=== PATIENT | female | born 1970 | race Two or more races ===

== ENCOUNTER 2018-01-08 17:58 | Emergency (ER) | payer OTHER ==
[~2018-01-08] VITALS: Ht 162.6 cm; Wt 95.3 kg
[~2018-01-08 17:58] MED LIST: BACTRIM DS TAB1 EAC1 ORAL; CIPRO500 MG/51 PO; DOCUSATE SODIU100 MG ORAL; NORCO 10/3251 EA ORAL
[2018-01-08] MEDS ORDERED: Morphine Sulfate 4mg/ml Inj IVP ONE (18:45)
--- NOTE | 2018-01-08 18:52 | Emergency Room Report ---
History of Present Illness General Chief Complaint: Abdominal Pain Source: Patient Present Illness HPI Patient is a 47 -year-old female presents today with complaints of left lower quadrant abdominal pain that began 2 days ago. She has a history of ovarian cancer and is status post hysterectomy and salpingoophorectomy. She states pain is currently not in severity and she is taking omeprazole with relief. She has associated nausea and vomiting, last episode was yesterday. Allergies: Coded Allergies: No Known Allergies (Unverified , 06/29/16) Patient History Last Menstrual Period: 06/20/16 Now: No Reviewed Nursing Documentation: PMH: Agreed; PSxH: Agreed Nursing Documentation-PMH Hx Cardiac Problems: No Hx Cancer: Yes - Ovary cancer Hx Gastrointestinal Problems: No Hx Neurological Problems: No Review of Systems Gastrointestinal: Reports: abdominal pain All Other Systems: negative except mentioned in HPI Physical Exam Vital Signs Date Time Temp Pulse Resp B/P (MAP) Pulse Ox O2 Delivery O2 Flow Rate FiO2 01/08/18 18:09 98.3 72 22 151/86 96 Room Air 98.2 Sp02 EP Interpretation: reviewed, normal General Appearance: no apparent distress, alert, GCS 15, non-toxic Head: normocephalic, atraumatic Eyes: bilateral eye normal inspection, bilateral eye PERRL ENT: hearing grossly normal, normal pharynx, no angioedema, normal voice Neck: full range of motion, supple/symm/no masses Respiratory: chest non-tender, lungs clear, normal breath sounds, speaking full sentences Cardiovascular #1: regular rate, rhythm, no edema Cardiovascular #2: 2+ carotid (R), 2+ carotid (L), 2+ radial (R), 2+ radial (L) , 2+ dorsalis pedis (R), 2+ dorsalis pedis (L) Gastrointestinal: normal bowel sounds, soft, non-distended, no guarding, no rebound, other - LLQ abdominal pain Rectal: deferred Genitourinary: normal inspection, no CVA tenderness Musculoskeletal: back normal, gait/station normal, normal range of motion, non- tender, calf tenderness Neurologic: alert, oriented x3, responsive, motor strength/tone normal, sensory intact, speech normal Psychiatric: judgement/insight normal, memory normal, mood/affect normal, no suicidal/homicidal ideation Reflexes: 3+ bicep (R), 3+ bicep (L), 3+ tricep (R), 3+ tricep (L), 3+ knee (R) , 3+ knee (L) Skin: normal color, no rash, warm/dry, well hydrated Lymphatic: no adenopathy Medical Decision Making PA Attestation Supervising physician is Dr. Null Diagnostic Impression: Primary Impression: Acute cystitis Additional Impression: LLQ abdominal pain ER Course Findings consistent with acute cystitis. No evidence of pyelonephritis. Patient has no leukocytosis and labs are within normal limits. CT is negative for intra-abdominal pathology. multiple re-evaluations made, patient states she is feeling much better. Abdomen is soft and nontender on reevaluation. Patient is discharged home with Keflex and instructed to follow-up with his further evaluation and management. Patient understands and is agreeable with plan. Last Vital Signs Date Time Temp Pulse Resp B/P (MAP) Pulse Ox O2 Delivery O2 Flow Rate FiO2 01/08/18 20:30 97.9 64 14 114/76 96 Room Air 97.9 Last Vital Signs Date Time Temp Pulse Resp B/P (MAP) Pulse Ox O2 Delivery O2 Flow Rate FiO2 01/08/18 18:09 98.3 72 22 151/86 96 Room Air 98.2 Status: improved Disposition: HOME, SELF-CARE Condition: Stable Scripts Cephalexin* (KEFLEX*) 500 Mg Capsule 500 MG ORAL EVERY 6 HOURS for 10 Days, #40 CAP Prov: Pamela Rincon P.A. 01/08/18 Cephalexin* (KEFLEX*) 500 Mg Capsule 500 MG ORAL EVERY 12 HOURS for 10 Days, #20 CAP 0 Refills Prov: Pamela Rincon P.A. 01/08/18 Patient Instructions: Abdominal Pain, Adult Pamela Rincon P.A. Jan 08, 2018 18:52
[2018-01-08 20:17] LABS: ANION GAP 8 mmol/L (5-15); BLOOD UREA NITROGEN 21 mg/dL (7-18); CALCIUM 9.6 MG/DL (8.5-10.1); CARBON DIOXIDE 27 MMOL/L (21-32); CHLORIDE 106 MMOL/L (98-107); CREATININE 1.1 MG/DL (0.55-1.30); POTASSIUM 3.9 MMOL/L (3.5-5.1); SODIUM 141 MMOL/L (136-145)
[2018-01-08 20:20] LABS: BASOPHILS % (AUTO) 0.5 % (0.0-2.0); EOSINOPHILS % (AUTO) 2.4 % (0.0-3.0); HEMATOCRIT 42.4 % (37.0-47.0); HEMOGLOBIN 14.7 G/DL (12.0-16.0); LYMPHOCYTES % (AUTO) 23.7 % (20.0-45.0); MEAN CORPUSCULAR VOLUME 89 FL (80-99); MONOCYTES % (AUTO) 6.4 % (1.0-10.0); PLATELET COUNT 220 K/UL (150-450); RED BLOOD COUNT 4.75 M/UL (4.20-5.40); RED CELL DISTRIBUTION WIDTH 12.2 % (11.6-14.8); WHITE BLOOD COUNT 7.8 K/UL (4.8-10.8)
[2018-01-08 20:23] LABS: ALANINE AMINOTRANSFERASE 33 U/L (12-78); ALBUMIN 3.6 G/DL (3.4-5.0); ALBUMIN/GLOBULIN RATIO 0.8 (1.0-2.7); ALKALINE PHOSPHATASE 93 U/L (46-116); ASPARTATE AMINO TRANSFERASE 19 U/L (15-37); BILIRUBIN,TOTAL 0.3 MG/DL (0.2-1.0)
[2018-01-08 20:24] LABS: APPEARANCE,URINE CLEAR; BILIRUBIN, URINE NEGATIVE (NEGATIVE); COLOR,URINE PALE YELLOW; GLUCOSE, URINE (UA) NEGATIVE (NEGATIVE); KETONES,URINE NEGATIVE (NEGATIVE); LEUKOCYTE ESTERASE ,URINE 1+ (NEGATIVE); NITRITE,URINE NEGATIVE (NEGATIVE); PH,URINE 5 (4.5-8.0); PROTEIN,URINE 3+ (NEGATIVE); UROBILINOGEN,URINE NORMAL MG/DL (0.0-1.0)
[2018-01-08 20:30] VITALS: BP 114/76
[2018-01-08] MEDS ORDERED: CEPHALEXIN500 MG ORAL ×2 (21:29)
[2018-01-08 21:55] VITALS: BP 114/76
--- NOTE | 2018-01-09 10:05 | Diagnostic Imaging Report ---
Clinical Indication: Abdominal pain Technique: No oral contrast utilized, per emergency room physician request IV administration nonionic contrast. Venous phase spiral acquisition obtained through the abdomen and pelvis. Multiplanar reconstructions were generated. Total dose length product 561 mGycm. CTDIvol(s) 16 mGy. Dose reduction achieved using automated exposure control Comparison: 06/29/2016 Findings: The appendix is not definitely visualized, but no findings to suggest acute appendicitis are evident. There is colonic diverticulosis. No evidence of diverticulitis. Small bowel loops mildly distended and fluid-filled, without evidence of transition point. No free or loculated intraperitoneal air or fluid is evident. Distal esophagus, stomach, duodenum are unremarkable. The liver, gallbladder, bile ducts, pancreas, spleen, adrenals, kidneys are unremarkable. Surgical clips are seen in the retroperitoneum and right pelvis. Uterus is surgically absent. No pelvic mass or adenopathy. The bladder contains a few gas bubbles. Previously demonstrated postsurgical inflammation of the lower abdominal wall is no longer evident. Previously demonstrated skin francie are no longer evident. Previously demonstrated pelvic postsurgical inflammatory changes are no longer evident Posterior dependent atelectatic changes are seen within the lungs. There is suggestion of some groundglass opacity within the lungs. A calcified granuloma is seen in the right middle lobe. The heart is borderline enlarged. The bones are unremarkable. Impression: Equivocally slightly prominent fluid-filled small bowel loops, may indicate mild enteritis changes if real. No acute process otherwise Gas bubbles in the urinary bladder. May reflect recent instrumentation. Possibility of infection with gas-forming organism should be considered if no history of recent instrumentation Previously demonstrated postsurgical inflammatory changes are no longer evident Bilateral basilar pulmonary parenchymal groundglass opacity, could indicate mild edema Portable and cardiomegaly Evidence of old granulomatous disease Nonvisualized appendix Surgically absent uterus This agrees with the preliminary interpretation provided overnight by [facility] teleradiology service. The CT scanner at [facility] is accredited by the [employer] [place] [employer] and the scans are performed using protocols designed to limit radiation exposure to as low as reasonably achievable to attain images of sufficient resolution adequate for diagnostic evaluation.
== END 2018-01-08 22:05 | disposition home or self-care (01) ==
LOC: EMR 22:05
DX: N30.00 Acute cystitis without hematuria (principal); Z90.710 Acquired absence of both cervix and uterus; Z85.43 Personal history of malignant neoplasm of ovary; Z90.721 Acquired absence of ovaries, unilateral; I51.7 Cardiomegaly
CPT/HCPCS: 36415; 74177; 80053; 81003; 83690; 85025; 96374; 96375; 99284; J2270; J2405; Q9967

== ENCOUNTER 2018-02-18 02:52 | Emergency (ER) | payer OTHER ==
[~2018-02-18] VITALS: Ht 162.6 cm; Wt 95.3 kg
[~2018-02-18 02:52] MED LIST changes: +CEPHALEXIN500 MG ORAL
--- NOTE | 2018-02-18 03:13 | Emergency Room Report ---
History of Present Illness General Chief Complaint: Chest Pain Source: Patient, Medical Record Present Illness HPI Is a 47-year-old female who has history of ovarian cancer. She presents with right-sided chest pain for the last year. She had workup and was so was negative. She presents with right-sided pain and shortness of breath going to her back. Onset yesterday. Pain is sharp in nature. Catching her breath. Worse with exertion and inspiration. No fever chills. No rating to the neck. No diaphoresis. Pain is 7 out of 10. Allergies: Coded Allergies: No Known Allergies (Unverified , 06/29/16) Patient History Past Medical History: see triage record, old chart reviewed Past Surgical History: other Pertinent Family History: none Social History: Denies: smoking Now: No Immunizations: other Reviewed Nursing Documentation: PMH: Agreed; PSxH: Agreed Nursing Documentation-PMH Past Medical History: No History, Except For Hx Cardiac Problems: No Hx Cancer: Yes - Ovarian Hx Gastrointestinal Problems: No Hx Neurological Problems: No Review of Systems Eye: Denies: eye pain, blurred vision ENT: Denies: ear pain, nose congestion, throat swelling Respiratory: Denies: cough, shortness of breath Cardiovascular: Reports: chest pain; Denies: palpitations Gastrointestinal: Denies: abdominal pain, diarrhea, nausea, vomiting Musculoskeletal: Denies: back pain, joint pain Skin: Denies: rash Neurological: Denies: headache, numbness Endocrine: Denies: increased thirst, increased urine Hematologic/Lymphatic: Denies: easy bruising All Other Systems: negative except mentioned in HPI Physical Exam Vital Signs Date Time Temp Pulse Resp B/P (MAP) Pulse Ox O2 Delivery O2 Flow Rate FiO2 02/18/18 02:56 97.8 84 17 142/74 98 Room Air 97.9 vitals normal Sp02 EP Interpretation: reviewed, normal General Appearance: well appearing, no apparent distress, alert, obese Head: normocephalic, atraumatic Eyes: bilateral eye PERRL, bilateral eye EOMI ENT: hearing grossly normal, normal pharynx Neck: full range of motion, supple, no meningismus Respiratory: chest non-tender, lungs clear, normal breath sounds Cardiovascular #1: regular rate, rhythm, no murmur Gastrointestinal: normal bowel sounds, non tender, no mass, no organomegaly, no bruit, non-distended Musculoskeletal: back normal, gait/station normal, normal range of motion Psychiatric: mood/affect normal Skin: warm/dry Medical Decision Making Diagnostic Impression: Primary Impression: Chest pain Qualified Codes: R07.9 - Chest pain, unspecified Additional Impression: Abdominal pain Qualified Codes: R10.11 - Right upper quadrant pain ER Course She presents with exacerbation of chronic pain to the right chest of a quadrant area. No evidence of ACS, PE, dissection to name a few. She is not coughing and pain is to the right side. I did a bedside ultrasound of the gallbladder was negative. Negative Vieyra sign. She had further workup about a year ago was also negative. We'll discharge home. Lab Results Impression labs normal EKG Diagnostic Results Rate: normal Rhythm: NSR ST Segments: no acute changes Rhythm Strip Diag. Results Rhythm Strip Time: 03:53 EP Interpretation: yes Rate: 72 Rhythm: NSR, no PVC's, no ectopy CT/MRI/US Diagnostic Results CT/MRI/US Diagnostic Results : Imaging Test Ordered: CT chest Impression Read by radiologist. Small nodular left basilar infiltrate. Last Vital Signs Date Time Temp Pulse Resp B/P (MAP) Pulse Ox O2 Delivery O2 Flow Rate FiO2 02/18/18 02:56 97.8 84 17 142/74 98 Room Air 97.9 Status: improved Disposition: HOME, SELF-CARE Condition: Stable Scripts Ibuprofen* (MOTRIN*) 600 Mg Tablet 600 MG ORAL THREE TIMES A DAY, #30 TAB 0 Refills Prov: BRISA MADSEN M.D. 02/18/18 Hydrocodone/Acetaminophen 5-325* (HYDROCODONE/ACETAMINOPHEN 5-325*) 1 Each Tablet 1 TAB ORAL Q6H PRN for For Pain, #15 TAB 0 Refills Prov: BRISA MADSEN M.D. 02/18/18 Patient Instructions: Nonspecific Chest Pain Additional Instructions: Follow-up with your DrZohra in 7 days. Return if worse. BRISA MADSEN M.D. Feb 18, 2018 03:13
[2018-02-18] MEDS ORDERED: Morphine Sulfate 4mg/ml Inj IVP ONE ×2 (03:15→04:00)
[2018-02-18] MEDS ORDERED: Ketorolac 30mg Inj IV ONE (03:15)
[2018-02-18] MEDS ORDERED: Isovue-370 150ml vial INJ PRN (03:15)
[2018-02-18 03:17] VITALS: BP 142/74
[2018-02-18 03:55] LABS: BASOPHILS % (AUTO) 0.5 % (0.0-2.0); EOSINOPHILS % (AUTO) 2.3 % (0.0-3.0); HEMATOCRIT 41.9 % (37.0-47.0); HEMOGLOBIN 13.9 G/DL (12.0-16.0); LYMPHOCYTES % (AUTO) 23.4 % (20.0-45.0); MEAN CORPUSCULAR VOLUME 92 FL (80-99); MONOCYTES % (AUTO) 7.5 % (1.0-10.0); NEUTROPHILS % (AUTO) 66.3 % (45.0-75.0); PLATELET COUNT 214 K/UL (150-450); RED BLOOD COUNT 4.57 M/UL (4.20-5.40); RED CELL DISTRIBUTION WIDTH 12.3 % (11.6-14.8); WHITE BLOOD COUNT 7.7 K/UL (4.8-10.8)
[2018-02-18 03:56] LABS: APPEARANCE,URINE CLEAR; BILIRUBIN, URINE NEGATIVE (NEGATIVE); COLOR,URINE PALE YELLOW; GLUCOSE, URINE (UA) NEGATIVE (NEGATIVE); KETONES,URINE NEGATIVE (NEGATIVE); LEUKOCYTE ESTERASE ,URINE 1+ (NEGATIVE); NITRITE,URINE NEGATIVE (NEGATIVE); PH,URINE 5 (4.5-8.0); PROTEIN,URINE 3+ (NEGATIVE); UROBILINOGEN,URINE NORMAL MG/DL (0.0-1.0)
[2018-02-18 04:08] LABS: ANION GAP 8 mmol/L (5-15); BLOOD UREA NITROGEN 39 mg/dL (7-18); CARBON DIOXIDE 27 MMOL/L (21-32); CHLORIDE 107 MMOL/L (98-107); CREATININE 1.6 MG/DL (0.55-1.30); POTASSIUM 4.3 MMOL/L (3.5-5.1); SODIUM 142 MMOL/L (136-145)
[2018-02-18 04:16] LABS: INR 0.9 (0.9-1.1)
[2018-02-18 04:21] LABS: ALANINE AMINOTRANSFERASE 42 U/L (12-78); ALBUMIN 3.4 G/DL (3.4-5.0); ALBUMIN/GLOBULIN RATIO 0.8 (1.0-2.7); ALKALINE PHOSPHATASE 120 U/L (46-116); ASPARTATE AMINO TRANSFERASE 12 U/L (15-37); BILIRUBIN,TOTAL 0.3 MG/DL (0.2-1.0); CREATINE KINASE 88 U/L (26-308)
--- NOTE | 2018-02-18 05:00 | Diagnostic Imaging Report ---
EXAM: CT Chest Without Intravenous Contrast CLINICAL HISTORY: CP TECHNIQUE: Axial computed tomography images of the chest without intravenous contrast. One or more of the following dose reduction techniques were used: automated exposure control, adjustment of the mA and/or kV according to patient size, use of iterative reconstruction technique. COMPARISON: FINDINGS: Lungs: Small nodular left basilar infiltrate was not present on the prior scan. Pleural space: No acute or suspicious findings. No pneumothorax. No significant effusion. Heart: No acute or suspicious findings. No cardiomegaly. No significant pericardial effusion. Bones/joints: No acute or suspicious findings. No acute fracture. No dislocation. Soft tissues: No acute or suspicious findings. Vasculature: No acute or suspicious findings. No thoracic aortic aneurysm. Lymph nodes: No acute or suspicious findings. No enlarged lymph nodes. IMPRESSION: Small nodular left basilar infiltrate was not present on the prior scan. Follow-up advised.
[2018-02-18] MEDS ORDERED: HYDROCODON-ACE1 EA15 ORAL (05:19)
[2018-02-18] MEDS ORDERED: IBUPROFEN600 MG ORAL (05:19)
[2018-02-18 05:27] VITALS: BP 145/77
[2018-02-18 05:28] VITALS: BP 142/74
--- NOTE | 2018-02-18 16:38 | Cardiology Report ---
APPROVED REPORT EKG Measurement Heart [id number] CO [id number] Normal sinus rhythm Normal ECG
== END 2018-02-18 05:29 | disposition home or self-care (01) ==
LOC: EMR 03:39
DX: R07.9 Chest pain, unspecified (principal); R10.11 Right upper quadrant pain; Z85.43 Personal history of malignant neoplasm of ovary
CPT/HCPCS: 36415; 71250; 80053; 81003; 81025; 82550; 82553; 84484; 85025; 85610; 85730; 87086; 87181; 93005; 96374; 96375; 99284; J1885; J2270

== ENCOUNTER 2018-07-14 12:15 | Emergency (ER) | payer OTHER ==
[~2018-07-14] VITALS: Ht 162.6 cm; Wt 81.6 kg
[~2018-07-14 12:15] MED LIST changes: +HYDROCODON-ACE1 EA15 ORAL; +IBUPROFEN600 MG ORAL
--- NOTE | 2018-07-14 13:05 | Emergency Room Report ---
History of Present Illness General Chief Complaint: Pain Source: Patient (Zaheer Kern) Present Illness HPI 48-year-old female patient presents to ER complaining of generalized abdominal pain. States pain is worse with sitting up and with inspiration. Patient reports history of ovarian cancer, states was diagnosed 2 years ago she had surgery to remove her ovaries and a hysterectomy. Denies taking blood thinners medications. Denies fever, chest pain, shortness of breath. Denies recent injury or trauma. Reports that she was seen by her doctor 2 weeks ago and had an ultrasound performed at that time on her kidneys, states she was told she has findings consistent with chronic renal disease and was put on antibiotics. States she is currently still taking Cipro antibiotics, also taking Pyridium. Reports pain symptoms worsen over the last 4 days. Denies diarrhea, vomiting. Reports dysuria. Denies hematuria. Denies vaginal discharge.denies history of stroke. Denies constipation. States has catheter in chest for medications that is scheduled to be removed next month. Patient perviously seen in the ER several months ago with similar symptoms. reports high-fat diet. Denies vomiting. (Zaheer Kern) Allergies: Coded Allergies: No Known Allergies (Unverified , 06/29/16) Patient History Past Medical History: see triage record Last Menstrual Period: NA Now: No Reviewed Nursing Documentation: PMH: Agreed; PSxH: Agreed (Zaheer Kern) Nursing Documentation-PMH Past Medical History: No History, Except For Hx Cardiac Problems: No Hx Cancer: Yes - Ovarian Hx Gastrointestinal Problems: No Hx Neurological Problems: No (Zaheer Kern) Review of Systems All Other Systems: negative except mentioned in HPI (Zaheer Kern) Physical Exam Vital Signs Date Time Temp Pulse Resp B/P (MAP) Pulse Ox O2 Delivery O2 Flow Rate FiO2 07/14/18 12:31 98.2 62 18 146/88 96 Room Air Sp02 EP Interpretation: reviewed, normal General Appearance: well appearing, no apparent distress, alert, GCS 15, non- toxic Head: normocephalic, atraumatic Eyes: bilateral eye normal inspection, bilateral eye PERRL ENT: hearing grossly normal, normal pharynx, no angioedema, normal voice, uvula midline, moist mucus membranes Neck: full range of motion, no bony tend Respiratory: lungs clear, normal breath sounds, no rhonchi, no respiratory distress, no accessory muscle use, no wheezing, speaking full sentences, other - chest TTP over sternum, no flail chest, no bony depression Cardiovascular #1: regular rate, rhythm, no edema Gastrointestinal: normal bowel sounds, soft, no mass, non-distended, no guarding, no rebound, tenderness - RUQ, other - negative obturator, negative rovsing Genitourinary: no CVA tenderness Musculoskeletal: back normal, digits/nails normal, gait/station normal, normal range of motion, non-tender Neurologic: alert, oriented x3, responsive, motor strength/tone normal, sensory intact Psychiatric: mood/affect normal Skin: no rash (Zaheer Kern) Medical Decision Making PA Attestation Dr. Oakes is my supervising Physician whom patient management has been discussed with. (Zaheer Kern) Diagnostic Impression: Primary Impression: Sludge in gallbladder Additional Impressions: Musculoskeletal chest pain Dysuria Fatty infiltration of liver Impaired renal function ER Course Pt. presents to the ED c/o abdominal pain, dysuria. Ddx considered but are not limited to UTI, cholelithiasis, cholecystitis, pancreatitis, appendicitis, diverticulitis, constipation, nephrolithiasis, SBO, GERD, constipation, hydronephrosis, NH, ACS, CHF, costochondritis, sprain, strain. Begin abdominal pain workup. Provided patient with pain medication. Ordered US abdominal due to RUQ pain on physical exam. Negative Rovsing, negative obturator, low suspicion for appendicitis, does not require CT of the abdomen at this time. Vital signs: are WNL, pt. is afebrile ORDERS: CBC, CMP, Lipase, UA, US, Pepcid and medication. ER COURSE: CBC unremarkable, no elevation in WBC CMP no elevation in LFTs, low suspicion for acute cholecystitis, BUN 23, GFR < 60, consistent with recent diagnosis of chronic kidney disease, followup with PCP and discuss referral to renal specialist. Does not require admission at this time. Lipase WNL Troponin negative UA negative for infection, continue taking abx as previously instructed. Will provide medication for pain symptoms. Urine Discuss results with patient US abdomen shows CXR negative for acute disease, port-A-cath in right chest wall Discuss results with the patient. Provided patient with copy of results. Instructed patient to followup with PCP and discuss results of report with patient, discuss need for further treatment and referral. EKG no ST elevations or atrial fibrillation CXR negative for acute disease, EKG no ST elevation, troponin negative, low suspicion for NH, CHF, or ACS. On PE, chest is TTP; chest pain likely musculoskeletal in nature. Patient instructed to take NSAIDs as needed for pain symptoms. abdominal ultrasound shows 1. Diffusely echogenic liver, suggesting fatty infiltration. 2. Gallbladder sludge without gallbladder wall thickening or ductal dilatation. 3. Positive sonographic Vieyra's sign. Discuss results with the patient. Provided patient with copy of results. Instructed patient to followup with PCP and discuss results of report with patient, discuss need for further treatment and referral. Patient ultrasound shows gallbladder sludge without wall thickening or ductal dilation, elevation WBCs her LFTs, low suspicion for acute cholecystitis, may be causing pain symptoms. Advised to followup with GI specialist for further imaging and assessment as needed. Okay for close outpatient follow-up and treatment. Advised against high fat diet. Avoid greasy fatty foods. ER precautions given. DISCHARGE: Rx provided for Flushing, CURES reviewed. Rx provided for Tylenol, take Tylenol following completion of Flushing pain medication. At this time pt. is stable for d/c to home. Patient resting comfortably, in no acute distress, nontoxic appearing, talking without difficulty. Rx provided to patient. Patient to take medications as instructed Will provide with patient care instructions and any necessary prescriptions. Care plan and follow-up instructions provided. Patient instructed to follow-up with primary care provider in 3 - 5 days. Patient questions asked and answered. Patient reports understanding and agreement to treatment plan. ER precautions given. Patient instructed to return to ER immediately for any new or worsening of symptoms including but not limited to increasing SOB, persistent fever, worsening of pain symptoms, intractable vomiting, blood in stool, urine, and/or emesis. - Please note that this Emergency Department Report was dictated using [employer] weigher technology software, occasionally this can lead to erroneous entry secondary to interpretation by the dictation equipment. Labs Test 07/14/18 13:00 07/14/18 13:15 White Blood Count 6.2 K/UL (4.8-10.8) Red Blood Count 5.29 M/UL (4.20-5.40) Hemoglobin 15.3 G/DL (12.0-16.0) Hematocrit 46.5 % (37.0-47.0) Mean Corpuscular Volume 88 FL (80-99) Mean Corpuscular Hemoglobin 28.9 PG (27.0-31.0) Mean Corpuscular Hemoglobin Concent 32.8 G/DL (32.0-36.0) Red Cell Distribution Width 11.8 % (11.6-14.8) Platelet Count 208 K/UL (150-450) Mean Platelet Volume 10.3 FL (6.5-10.1) Neutrophils (%) (Auto) 64.8 % (45.0-75.0) Lymphocytes (%) (Auto) 25.1 % (20.0-45.0) Monocytes (%) (Auto) 6.7 % (1.0-10.0) Eosinophils (%) (Auto) 2.7 % (0.0-3.0) Basophils (%) (Auto) 0.7 % (0.0-2.0) Sodium Level 142 MMOL/L (136-145) Potassium Level 4.4 MMOL/L (3.5-5.1) Chloride Level 106 MMOL/L (98-107) Carbon Dioxide Level 24 MMOL/L (21-32) Anion Gap 13 mmol/L (5-15) Blood Urea Nitrogen 23 mg/dL (7-18) Creatinine 1.1 MG/DL (0.55-1.30) Estimat Glomerular Filtration Rate 52.8 mL/min (>60) Glucose Level 108 MG/DL (74-106) Calcium Level 9.7 MG/DL (8.5-10.1) Total Bilirubin 0.4 MG/DL (0.2-1.0) Aspartate Amino Transf (AST/SGOT) 31 U/L (15-37) Alanine Aminotransferase (ALT/SGPT) 49 U/L (12-78) Alkaline Phosphatase 103 U/L (46-116) Creatine Kinase MB < 0.5 NG/ML (0.0-3.6) Troponin I 0.000 ng/mL (0.000-0.056) Total Protein 8.2 G/DL (6.4-8.2) Albumin 3.8 G/DL (3.4-5.0) Globulin 4.4 g/dL Albumin/Globulin Ratio 0.9 (1.0-2.7) Lipase 148 U/L (73-393) Urine Color Pale yellow Urine Appearance Clear Urine pH 5 (4.5-8.0) Urine Specific [place] 1.010 (1.005-1.035) Urine Protein 3+ (NEGATIVE) Urine Glucose (UA) Negative (NEGATIVE) Urine Ketones Negative (NEGATIVE) Urine Blood 4+ (NEGATIVE) Urine Nitrite Negative (NEGATIVE) Urine Bilirubin Negative (NEGATIVE) Urine Urobilinogen Normal MG/DL (0.0-1.0) Urine Leukocyte Esterase Negative (NEGATIVE) Urine RBC 2-4 /HPF (0 - 2) Urine WBC 0 /HPF (0 - 2) Urine Squamous Epithelial Cells Occasional /LPF Urine Bacteria None /HPF (NONE) Urine HCG, Qualitative Negative (NEGATIVE) (Zaheer Kern P.A.) EKG Diagnostic Results Rate: normal Rhythm: NSR ST Segments: no acute changes ASA given to the pt in ED: No PA Scribe Text Dev Kern PA-C (Zaheer Kern P.A.) Rhythm Strip Diag. Results EP Interpretation: yes Rate: 71 Rhythm: NSR, no PVC's, no ectopy PA Scribe Text Dev Kern PA-C (Zaheer Kern P.A.) Chest X-Ray Diagnostic Results Chest X-Ray Diagnostic Results : Chest X-Ray Ordered: Yes # of Views/Limited/Complete: 1 View Indication: Chest Pain EP Interpretation: Yes PA Xray: Interpretation reviewed, by supervising MD, and agrees with findings. Interpretation: no consolidation, no effusion, no pneumothorax, no acute cardiopulmonary disease, other - Port-A-Cath in right chest wall Impression: No acute disease PA Scribe Text Dev Kern PA-C (Zaheer Kern P.A.) Chest X-Ray Diagnostic Results : Electronically Signed by: Scribe documentation reviewed by me and is accurate, Siva Oakes MD (Siva Oakes MD) CT/MRI/US Diagnostic Results CT/MRI/US Diagnostic Results : Imaging Test Ordered: Abdominal US Impression 1. Diffusely echogenic liver, suggesting fatty infiltration. 2. Gallbladder sludge without gallbladder wall thickening or ductal dilatation. 3. Positive sonographic Vieyra's sign. (Zaheer Kern P.A.) Last Vital Signs Date Time Temp Pulse Resp B/P (MAP) Pulse Ox O2 Delivery O2 Flow Rate FiO2 07/14/18 12:31 98.2 62 18 146/88 96 Room Air Status: improved (Zaheer Kern) Disposition: HOME, SELF-CARE Condition: Stable Scripts Acetaminophen* (TYLENOL EXTRA STRENGTH*) 500 Mg Tablet 500 MG ORAL Q8H PRN for Prn Headache/Temp > 101, #30 TAB 0 Refills Prov: Zaheer Kern 07/14/18 Hydrocodone Bit/Acetaminophen 5-325* (NORCO 5-325*) 1 Each Tablet 1 TAB ORAL Q6H PRN for For Pain, #10 TAB 0 Refills Prov: Zaheer Kern 07/14/18 Referrals: NOT CHOSEN IPA/,REFERRING (PCP) Patient Instructions: Chronic Kidney Disease, [id number], Costochondritis, [id number], Dysuria, Fatty Liver, Nonalcoholic Fatty Liver Disease Diet Additional Instructions: Followup with primary care provider in 2-3 days to discuss gallbladder sludge. Discuss referral to GI specialist. Discus US results at that time to discuss need for further imaging. Followup with renal specialist. Avoid greasy fatty foods. Take medications as directed. Following completion of Flushing, may take Tylenol for pain. Flushing may cause drowsiness, do not take prior to drinking, driving, operating heavy machinery. Patient questions asked and answered. ER precautions given, patient instructed to return to ER immediately for any new or worsening of symptoms. Zaheer Kern Jul 14, 2018 13:05 Siva Oakes MD Jul 15, 2018 08:18
[2018-07-14 13:47] VITALS: BP 138/82
--- NOTE | 2018-07-14 13:49 | Diagnostic Imaging Report ---
EXAM: XR Chest, 1 View CLINICAL HISTORY: ABD PAIN TECHNIQUE: Frontal view of the chest. COMPARISON: Chest x-ray dated 06/30/16. CT chest dated 02/18/18. FINDINGS: Lungs: Unremarkable. The lungs appear clear. No confluent pulmonary opacities. Pleural space: Unremarkable. The costophrenic angles are sharp. No visible pneumothorax. Heart: Unremarkable. No cardiomegaly. Mediastinum: Unremarkable. Bones/joints: Unremarkable. Tubes, lines and devices: Port-A-Cath in the right chest wall with catheter tip in the region of the right atrium. IMPRESSION: No acute findings.
[2018-07-14 13:55] LABS: BASOPHILS % (AUTO) 0.7 % (0.0-2.0); EOSINOPHILS % (AUTO) 2.7 % (0.0-3.0); HEMATOCRIT 46.5 % (37.0-47.0); HEMOGLOBIN 15.3 G/DL (12.0-16.0); LYMPHOCYTES % (AUTO) 25.1 % (20.0-45.0); MEAN CORPUSCULAR VOLUME 88 FL (80-99); MONOCYTES % (AUTO) 6.7 % (1.0-10.0); NEUTROPHILS % (AUTO) 64.8 % (45.0-75.0); PLATELET COUNT 208 K/UL (150-450); RED BLOOD COUNT 5.29 M/UL (4.20-5.40); RED CELL DISTRIBUTION WIDTH 11.8 % (11.6-14.8); WHITE BLOOD COUNT 6.2 K/UL (4.8-10.8)
[2018-07-14 13:59] LABS: APPEARANCE,URINE CLEAR; BILIRUBIN, URINE NEGATIVE (NEGATIVE); COLOR,URINE PALE YELLOW; GLUCOSE, URINE (UA) NEGATIVE (NEGATIVE); KETONES,URINE NEGATIVE (NEGATIVE); LEUKOCYTE ESTERASE ,URINE NEGATIVE (NEGATIVE); NITRITE,URINE NEGATIVE (NEGATIVE); PH,URINE 5 (4.5-8.0); PROTEIN,URINE 3+ (NEGATIVE); UROBILINOGEN,URINE NORMAL MG/DL (0.0-1.0)
--- NOTE | 2018-07-14 14:06 | Diagnostic Imaging Report ---
EXAM: US Abdomen Complete CLINICAL HISTORY: PAIN TECHNIQUE: Real-time ultrasound of the abdomen (complete) with image documentation. COMPARISON: CT abdomen and pelvis dated 01/08/18 FINDINGS: Liver: Diffusely echogenic liver, suggesting fatty infiltration. Liver diameter of 19.8 cm. Gallbladder: Gallbladder sludge without wall thickening or ductal dilatation. The ticketing clerk recorded a positive Vieyra sign. Common bile duct: Common bile duct diameter of 2 mm. No stones. No dilation. Pancreas: Unremarkable as visualized. Pancreatic body and tail are obscured by bowel gas. Kidneys: Right kidney length of 10.6 cm. Left kidney length of 11.7 cm. Normal cortical thickness. No visible parenchymal lesions. No visible stones. No hydronephrosis. Spleen: Spleen diameter of 11.1 cm. Aorta: Unremarkable. Visualized portions appear unremarkable without evidence of aneurysm. Inferior vena cava: Unremarkable. IMPRESSION: 1. Diffusely echogenic liver, suggesting fatty infiltration. 2. Gallbladder sludge without gallbladder wall thickening or ductal dilatation. 3. Positive sonographic Vieyra's sign.
[2018-07-14 14:14] LABS: ANION GAP 13 mmol/L (5-15); BLOOD UREA NITROGEN 23 mg/dL (7-18); CALCIUM 9.7 MG/DL (8.5-10.1); CARBON DIOXIDE 24 MMOL/L (21-32); CHLORIDE 106 MMOL/L (98-107); CREATININE 1.1 MG/DL (0.55-1.30); POTASSIUM 4.4 MMOL/L (3.5-5.1); SODIUM 142 MMOL/L (136-145)
[2018-07-14 14:29] LABS: ALANINE AMINOTRANSFERASE 49 U/L (12-78); ALBUMIN 3.8 G/DL (3.4-5.0); ALBUMIN/GLOBULIN RATIO 0.9 (1.0-2.7); ALKALINE PHOSPHATASE 103 U/L (46-116); ASPARTATE AMINO TRANSFERASE 31 U/L (15-37); BILIRUBIN,TOTAL 0.4 MG/DL (0.2-1.0); CKMB < 0.5 NG/ML (0.0-3.6)
[2018-07-14] MEDS ORDERED: TYLENOL EXTRA500 MG ORAL (15:02)
[2018-07-14] MEDS ORDERED: NORCO 5-325 TA1 EACH ORAL (15:02)
[2018-07-14 15:57] VITALS: BP 138/82
== END 2018-07-14 16:00 | disposition home or self-care (01) ==
LOC: EMR 12:52
DX: K83.9 Disease of biliary tract, unspecified (principal); R07.89 Other chest pain; R30.0 Dysuria; K76.0 Fatty (change of) liver, not elsewhere classified; N28.9 Disorder of kidney and ureter, unspecified
CPT/HCPCS: 36415; 71045; 76700; 80053; 81003; 81025; 82553; 83690; 84484; 85025; 93005; 96374; 99284; S0028

== ENCOUNTER 2019-04-13 11:18 | Emergency (ER) | payer OTHER ==
[~2019-04-13] VITALS: Ht 162.6 cm; Wt 94.3 kg
[~2019-04-13 11:18] MED LIST changes: +NORCO 5-325 TA1 EACH ORAL; +TYLENOL EXTRA500 MG ORAL
[2019-04-13] MEDS ORDERED: Morphine Sulfate 4mg/ml Inj (IV USE ONLY) IVP ONE (12:00)
--- NOTE | 2019-04-13 12:18 | Emergency Room Report ---
History of Present Illness General Chief Complaint: Abdominal Pain Source: Patient Present Illness HPI Patient is a 48-year-old female presented after increased generalized abdominal pain and discomfort. Patient had prior history of ovarian cancer and had approximate 6 months of chemotherapy. She reports having chemotherapy on Monday. She reports having worsening pain since this episode. She reports feeling hot. She denies any definite fever. She had prior history of some immune system depression. She is currently getting Taxol. Patient had prior ovarian surgery and initial cancer removal. She had recurrence. Patient is getting chemotherapy at [facility]. Allergies: Coded Allergies: No Known Allergies (Unverified , 06/29/16) Patient History Past Medical History: see triage record Reviewed Nursing Documentation: PMH: Agreed; PSxH: Agreed Nursing Documentation-PMH Past Medical History: No History, Except For Hx Cardiac Problems: No Hx Hypertension: Yes Hx Cancer: Yes - Ovarian Hx Gastrointestinal Problems: No Hx Neurological Problems: No Review of Systems All Other Systems: negative except mentioned in HPI Physical Exam Vital Signs Date Time Temp Pulse Resp B/P (MAP) Pulse Ox O2 Delivery O2 Flow Rate FiO2 04/13/19 11:29 98.2 97 16 127/97 (107) 98 Room Air Sp02 EP Interpretation: reviewed, normal General Appearance: alert, GCS 15, non-toxic, mild distress, obese, Chronically Ill Head: atraumatic ENT: normal ENT inspection, hearing grossly normal, normal voice Neck: normal inspection, full range of motion, supple, no bony tend Respiratory: normal inspection, lungs clear, normal breath sounds, no respiratory distress, no retraction, no wheezing Cardiovascular #1: regular rate, rhythm, no edema Gastrointestinal: normal inspection, normal bowel sounds, non tender, soft, no guarding, no hernia Genitourinary: no CVA tenderness Musculoskeletal: normal inspection, back normal, normal range of motion Neurologic: normal inspection, alert, oriented x3, responsive, php software engineer III-XII nml as tested, speech normal Psychiatric: normal inspection, judgement/insight normal, mood/affect normal Skin: pallor Medical Decision Making Diagnostic Impression: Primary Impression: Ovarian cancer Additional Impressions: Dehydration Chemotherapy adverse reaction ER Course Patient presented for abdominal pain. Differential diagnosis include was not limited to peritonitis, chemotherapy induced vomiting, dehydration, renal failure, among others. Because of complexity of patient's case laboratory testing and imaging studies were ordered. Patient was noted to have significant pain and weakness. She started on IV fluids. She is given IV pain medications as well as nausea medication. Patient was noted to have some improvement. She continues to feel weak. Patient was discussed with physician for [facility]. Patient will be transferred for continuity of care. Patient does not show any signs of peritonitis abdominal exam. Patient is currently in stable condition Labs Test 04/13/19 12:35 White Blood Count 3.1 K/UL (4.8-10.8) Red Blood Count 4.04 M/UL (4.20-5.40) Hemoglobin 12.1 G/DL (12.0-16.0) Hematocrit 37.1 % (37.0-47.0) Mean Corpuscular Volume 92 FL (80-99) Mean Corpuscular Hemoglobin 30.0 PG (27.0-31.0) Mean Corpuscular Hemoglobin Concent 32.7 G/DL (32.0-36.0) Red Cell Distribution Width 14.2 % (11.6-14.8) Platelet Count 332 K/UL (150-450) Mean Platelet Volume 7.8 FL (6.5-10.1) Neutrophils (%) (Auto) % (45.0-75.0) Lymphocytes (%) (Auto) % (20.0-45.0) Monocytes (%) (Auto) % (1.0-10.0) Eosinophils (%) (Auto) % (0.0-3.0) Basophils (%) (Auto) % (0.0-2.0) Differential Total Cells Counted 100 Neutrophils % (Manual) 65 % (45-75) Lymphocytes % (Manual) 32 % (20-45) Monocytes % (Manual) 2 % (1-10) Eosinophils % (Manual) 1 % (0-3) Basophils % (Manual) 0 % (0-2) Band Neutrophils 0 % (0-8) Platelet Estimate Adequate Platelet Morphology Normal Red Blood Cell Morphology Normal Urine Color Yellow Urine Appearance Clear Urine pH 5 (4.5-8.0) Urine Specific [place] 1.015 (1.005-1.035) Urine Protein 4+ (NEGATIVE) Urine Glucose (UA) Negative (NEGATIVE) Urine Ketones Negative (NEGATIVE) Urine Blood 5+ (NEGATIVE) Urine Nitrite Negative (NEGATIVE) Urine Bilirubin Negative (NEGATIVE) Urine Urobilinogen Normal MG/DL (0.0-1.0) Urine Leukocyte Esterase 1+ (NEGATIVE) Urine RBC 5-10 /HPF (0 - 2) Urine WBC 2-4 /HPF (0 - 2) Urine Squamous Epithelial Cells Occasional /LPF Urine Bacteria Occasional /HPF (NONE) Sodium Level 140 MMOL/L (136-145) Potassium Level 4.1 MMOL/L (3.5-5.1) Chloride Level 104 MMOL/L (98-107) Carbon Dioxide Level 27 MMOL/L (21-32) Anion Gap 9 mmol/L (5-15) Blood Urea Nitrogen 28 mg/dL (7-18) Creatinine 1.4 MG/DL (0.55-1.30) Estimat Glomerular Filtration Rate 40.0 mL/min (>60) Glucose Level 125 MG/DL (74-106) Calcium Level 9.2 MG/DL (8.5-10.1) Total Bilirubin 0.4 MG/DL (0.2-1.0) Aspartate Amino Transf (AST/SGOT) 31 U/L (15-37) Alanine Aminotransferase (ALT/SGPT) 56 U/L (12-78) Alkaline Phosphatase 105 U/L (46-116) Total Protein 7.6 G/DL (6.4-8.2) Albumin 3.6 G/DL (3.4-5.0) Globulin 4.0 g/dL Albumin/Globulin Ratio 0.9 (1.0-2.7) Lipase 109 U/L (73-393) Last Vital Signs Date Time Temp Pulse Resp B/P (MAP) Pulse Ox O2 Delivery O2 Flow Rate FiO2 04/13/19 12:12 97 16 Room Air 04/13/19 11:29 98.2 127/97 (107) 98 Status: improved Disposition: XFER SHT-TRM HOSP Condition: Stable Aiden Moser MD Apr 13, 2019 12:18
--- NOTE | 2019-04-13 12:35 | NUR ---
ED Nurse Note: pt came in due to abdominal pain accompanied by nausea and vomiting started 8 days ago. pt stated she was diagnosed with ovarian ca and was undergoing chemotherapy, last chemo therapy was april 08,. pt was seen by michaela carter on pt maddison cath on the right chest using g 20 alicea needle. blood drawn and was sent to lab. pt able to give urine specimen and was sent to lab. will continue to monitor.
[2019-04-13 13:08] VITALS: BP 111/89
[2019-04-13 13:09] LABS: APPEARANCE,URINE CLEAR; BILIRUBIN, URINE NEGATIVE (NEGATIVE); GLUCOSE, URINE (UA) NEGATIVE (NEGATIVE); KETONES,URINE NEGATIVE (NEGATIVE); LEUKOCYTE ESTERASE ,URINE 1+ (NEGATIVE); NITRITE,URINE NEGATIVE (NEGATIVE); PH,URINE 5 (4.5-8.0); PROTEIN,URINE 4+ (NEGATIVE); UROBILINOGEN,URINE NORMAL MG/DL (0.0-1.0)
--- NOTE | 2019-04-13 13:09 | NUR ---
ED Nurse Note: pt medicated as ordered, pt able to tolerate meds. pt vs within normal limit. will continue to monitor
[2019-04-13 13:11] LABS: COLOR,URINE YELLOW; HEMATOCRIT 37.1 % (37.0-47.0); HEMOGLOBIN 12.1 G/DL (12.0-16.0); MEAN CORPUSCULAR VOLUME 92 FL (80-99); PLATELET COUNT 332 K/UL (150-450); RED BLOOD COUNT 4.04 M/UL (4.20-5.40); RED CELL DISTRIBUTION WIDTH 14.2 % (11.6-14.8); WHITE BLOOD COUNT 3.1 K/UL (4.8-10.8)
[2019-04-13 13:17] LABS: ANION GAP 9 mmol/L (5-15); BLOOD UREA NITROGEN 28 mg/dL (7-18); CALCIUM 9.2 MG/DL (8.5-10.1); CARBON DIOXIDE 27 MMOL/L (21-32); CHLORIDE 104 MMOL/L (98-107); CREATININE 1.4 MG/DL (0.55-1.30); POTASSIUM 4.1 MMOL/L (3.5-5.1); SODIUM 140 MMOL/L (136-145)
[2019-04-13 13:21] LABS: ALANINE AMINOTRANSFERASE 56 U/L (12-78); ALBUMIN 3.6 G/DL (3.4-5.0); ALBUMIN/GLOBULIN RATIO 0.9 (1.0-2.7); ALKALINE PHOSPHATASE 105 U/L (46-116); ASPARTATE AMINO TRANSFERASE 31 U/L (15-37); BILIRUBIN,TOTAL 0.4 MG/DL (0.2-1.0)
[2019-04-13] MEDS: Morphine Sulfate 4mg/ml Inj (IV USE ONLY) IVP ONE ×2 (14:06→14:07)
--- NOTE | 2019-04-13 14:07 | NUR ---
ED Nurse Note: raul gibson morphine and pt refused medication and stated that she is not in pain right now. raul made aware. will continue to monitor.
[2019-04-13] MEDS ORDERED: D5 1/2NS w/KCl 20mEq 1,000 ML IV SCH (14:45)
[2019-04-13 15:35] VITALS: BP 159/100
--- NOTE | 2019-04-13 15:47 | NUR ---
ED Nurse Note: pt assessed for pain and pt stated she feels no pain on her abdomen right now, pt has no complaint at the moment. pt family at the bedside. pt is aware of the posible hospital transfer. pt vs within normal limit. will conitnue to monitor.
[2019-04-13] MEDS ORDERED: UNOBMED (18:24)
--- NOTE | 2019-04-13 18:29 | NUR ---
ambulance just arrived
[2019-04-13 18:36] VITALS: BP 169/97
[2019-04-13 18:40] VITALS: BP 169/97
--- NOTE | 2019-04-13 18:40 | NUR ---
ED Nurse Note: report given to 2 ems from [facility] and report was given to raza silvestre of [facility]. pt left the ed with stable vs and with all belongings.
== END 2019-04-13 18:40 | disposition short-term general hospital (02) ==
LOC: EMR 12:25
DX: T45.1X5A Adverse effect of antineoplastic and immunosuppressive drugs, initial encounter (principal); C56.9 Malignant neoplasm of unspecified ovary; I10 Essential (primary) hypertension; E86.0 Dehydration; Y92.9 Unspecified place or not applicable; E66.9 Obesity, unspecified; Z68.35 Body mass index [BMI] 35.0-35.9, adult
CPT/HCPCS: 36415; 80053; 81003; 83690; 85007; 85025; 86850; 86900; 86901; 96365; 96366; 96375; 99284; J2270; J2405

== ENCOUNTER 2020-10-17 17:54 | Emergency (ER) | payer OTHER ==
[~2020-10-17] VITALS: Ht 162.6 cm; Wt 104.3 kg
[~2020-10-17 17:54] MED LIST changes: +UNOBMED
[2020-10-17 18:01] VITALS: BP 113/62
--- NOTE | 2020-10-17 18:12 | NUR ---
ED Nurse Note: pt presents to ED via wheelchair assist for L knee pain. pt reports falling 3 weeks ago but the pain in her L knee has increasingly gotten worse, she reports DROM of extremity, states that she has CA which she is currently being treated for. px is exacerbated by weight bearing, pt is ambulatory at baseline but has been using a wheelchair due to the pain in her knee
[2020-10-17] MEDS ORDERED: Ketorolac 30mg Inj IV ONE (18:15)
--- NOTE | 2020-10-17 18:15 | NUR ---
ED Nurse Note: pt is noted to be satting at 97% on RA when connected to portable jukebox routeman in pt room
[2020-10-17 18:34] LABS: HEMOGLOBIN 13.8 G/DL (12.0-16.0); MEAN CORPUSCULAR VOLUME 100 FL (80-99); PLATELET COUNT 104 K/UL (150-450); RED BLOOD COUNT 4.42 M/UL (4.20-5.40); RED CELL DISTRIBUTION WIDTH 13.5 % (11.6-14.8); WHITE BLOOD COUNT 12.7 K/UL (4.8-10.8)
[2020-10-17 18:35] LABS: BASOPHILS % (AUTO) 0.1 % (0.0-2.0); EOSINOPHILS % (AUTO) 0.2 % (0.0-3.0); LYMPHOCYTES % (AUTO) 5.4 % (20.0-45.0); MONOCYTES % (AUTO) 3.2 % (1.0-10.0); NEUTROPHILS % (AUTO) 91.2 % (45.0-75.0)
[2020-10-17 18:44] LABS: CALCIUM 8.8 MG/DL (8.5-10.1); CREATININE 2.3 MG/DL (0.55-1.30); POTASSIUM 4.8 MMOL/L (3.5-5.1)
[2020-10-17] MEDS ORDERED: Morphine Sulfate 2mg/ml Inj(IV/IM USE ONLY) IVP ONE (18:45)
[2020-10-17 18:49] LABS: INR 0.9 (0.9-1.1)
[2020-10-17 18:50] LABS: ALBUMIN 2.8 G/DL (3.4-5.0); ALBUMIN/GLOBULIN RATIO 0.6 (1.0-2.7); BILIRUBIN,TOTAL 0.7 MG/DL (0.2-1.0)
--- NOTE | 2020-10-17 19:11 | Diagnostic Imaging Report ---
EXAM: XR Left Knee, 3 Views CLINICAL HISTORY: PAIN TECHNIQUE: Three views of the left knee. COMPARISON: No relevant prior studies available. FINDINGS: Bones/joints: No acute fracture. No dislocation. Soft tissues: Unremarkable. IMPRESSION: No acute osseous abnormalities.
--- NOTE | 2020-10-17 19:28 | Emergency Room Report ---
History of Present Illness General Chief Complaint: Lower Extremity Injury Source: Patient, Medical Record (Louie Harper) Present Illness HPI 50-year-old female with history of ovarian cancer currently under chemo therapy treatment, hypertension wheeled into the ER due to 10 out of 10 neck pain and left calf swelling. Patient reports that 3 weeks ago she landed not needed as well in her today. Reports that she was sitting down earlier today all of a sudden felt a sharp pain in the left calf and knee. Obvious swelling noted, calf warm and tender to palpation. Denies any tingling or numbness. Denies any chest pain, pleuritic chest pain, shortness of breath. Patient is compliant with taking medication last visit with oncologist was 1 month ago. Patient also takes hydrocodone at home for pain. Patient appears to be morbidly obese, having a sedentary lifestyle. Denies any excess bleeding, denies any head injury or loss of consciousness. Patient did not disclose any history of renal issues prior to me ordering Toradol as I asked her if any history of kidney issue however she denies any prior to administration of medication. Upon rel ease of BUN/creatinine results patient reported that she has been aware for the past few days that she has abnormal kidney should have her primary doctor notified her however has not yet followed up with grass farm laborer. (Louie Harper) Allergies: Coded Allergies: No Known Allergies (Unverified , 06/29/16) COVID-19 Screening Contact w/high risk pt: No Experienced COVID-19 symptoms?: No COVID-19 Testing performed TYPING OFFICE WORKER: No COVID-19 Screening: Negative COVID-19 COVID-19 Testing Source: 09/2020 (Louie Harper) Patient History Past Medical History: see triage record Past Surgical History: none Pertinent Family History: none Now: No Immunizations: UTD Reviewed Nursing Documentation: PMH: Agreed; PSxH: Agreed (Louie Harper) Nursing Documentation-PMH Past Medical History: No History, Except For Hx Cardiac Problems: No Hx Hypertension: Yes Hx Cancer: Yes - Ovarian Hx Gastrointestinal Problems: No Hx Neurological Problems: No (Louie Harper) Review of Systems All Other Systems: negative except mentioned in HPI (Louie Harper) Physical Exam Vital Signs Date Time Temp Pulse Resp B/P (MAP) Pulse Ox O2 Delivery O2 Flow Rate FiO2 10/17/20 18:01 99.7 110 20 113/62 (79) 93 Room Air Sp02 EP Interpretation: reviewed, normal General Appearance: mild distress Head: normocephalic, atraumatic Eyes: bilateral eye normal inspection, bilateral eye PERRL ENT: hearing grossly normal, normal pharynx, no angioedema, normal voice Neck: supple Respiratory: chest non-tender, lungs clear, normal breath sounds, no rhonchi, no respiratory distress, no retraction, no accessory muscle use, no wheezing, speaking full sentences Gastrointestinal: non tender, soft, no bruit Rectal: deferred Genitourinary: no CVA tenderness Musculoskeletal: back normal, calf tenderness - Left calf tenderness, pelvis stable, non-tender, swelling - left knee Neurologic: alert, motor strength/tone normal, oriented x3, sensory intact, responsive, speech normal Psychiatric: judgement/insight normal, memory normal, mood/affect normal, no suicidal/homicidal ideation Skin: no rash Lymphatic: no adenopathy (Louie Harper) Medical Decision Making PA Attestation All diagnoses and treatment plans were reviewed and discussed with my supervising physician Dr. Saldaña (Louie Harper) PA Attestation I participate in the care of this patient along with LJ Feliz Briefly, this a 50-year-old female history of ovarian cancer, recently undergoing chemotherapy presenting for atraumatic left knee pain and upper calf swelling. No obvious fracture on x-ray. Labs showed slightly positive D-dimer and ultrasound lower extremity was of obtained to evaluate for DVT. No DVT or other abnormality identified. Possible arthritis and patient was prescribed medicated cream. Patient had no clinical signs of a pulmonary embolism as she was saturating 100% on room air no difficulty breathing denied chest pain or shortness of breath. She does have a risk factor of currently undergoing chemotherapy however given the patient's chronic kidney disease reduced renal function elected not to scan at this time. I discussed this with her PMD who agreed and will see her in clinic Monday morning to reevaluate. Patient also be treated for urinary tract infection with Keflex. Stable for outpatient follow- up. She is feeling better. Return precautions discussed. She understands agrees with the treatment plan. (Nitin Saldaña MD) Diagnostic Impression: Primary Impression: CKD (chronic kidney disease) Additional Impressions: Elevated liver enzymes Arthritis of knee ER Course 50-year-old female with history of ovarian cancer currently under chemo therapy treatment, hypertension wheeled into the ER due to 10 out of 10 neck pain and left calf swelling. Patient reports that 3 weeks ago she landed not needed as well in her today. Reports that she was sitting down earlier today all of a sudden felt a sharp pain in the left calf and knee. Obvious swelling noted, ca lf warm and tender to palpation. Denies any tingling or numbness. Denies any chest pain, pleuritic chest pain, shortness of breath. Patient is compliant with taking medication last visit with oncologist was 1 month ago. Patient also takes hydrocodone at home for pain. Patient appears to be morbidly obese, having a sedentary lifestyle. Denies any excess bleeding, denies any head injury or loss of consciousness. Patient did not disclose any history of renal issues prior to me ordering Toradol as I asked her if any history of kidney issue however she denies any prior to administration of medication. Upon release of BUN/creatinine results patient reported that she has been aware for the past few days that she has abnormal kidney should have her primary doctor notified her however has not yet followed up with grass farm laborer. Ddx considered but are not limited to : Cellulitis, DVT, PE, arthritic knee, knee sprain Vital signs: are WNL, pt. is afebrile H&PE are most consistent with:left knee arthritis, ROMAIN, elevated liver enzymes ORDERS:CBC, CMP, PT-PTT, D-dimer, troponin, UA, left knee X-ray, LLE venous duplex US ED INTERVENTIONS: NS bolus, zofran, morphine, toradol Patient was administered progression of worsening symptoms, follow primary doctor for further evaluation and treatment is elevated however venous duplex study showed no DVT. Patient PMD was contacted. Patient is aware of CKD status as well as elevated liver enzymes. Reports that she knows of elevated liver enzymes as well as abnormal kidney function prior to arrival to ED . I signed out the patient to Dr. Saldaña at 8PM (AdriananmLouie) Laboratory Tests Test 10/17/20 18:25 1/30/21 19:50 White Blood Count 12.7 K/UL (4.8-10.8) H Red Blood Count 4.42 M/UL (4.20-5.40) Hemoglobin 13.8 G/DL (12.0-16.0) Hematocrit 44.0 % (37.0-47.0) Mean Corpuscular Volume 100 FL (80-99) H Mean Corpuscular Hemoglobin 31.3 PG (27.0-31.0) H Mean Corpuscular Hemoglobin Concent 31.4 G/DL (32.0-36.0) L Red Cell Distribution Width 13.5 % (11.6-14.8) Platelet Count 104 K/UL (150-450) L Mean Platelet Volume 10.6 FL (6.5-10.1) H Neutrophils (%) (Auto) 91.2 % (45.0-75.0) H Lymphocytes (%) (Auto) 5.4 % (20.0-45.0) L Monocytes (%) (Auto) 3.2 % (1.0-10.0) Eosinophils (%) (Auto) 0.2 % (0.0-3.0) Basophils (%) (Auto) 0.1 % (0.0-2.0) Prothrombin Time 10.4 SEC (9.30-11.50) Prothrombin Time INR 0.9 (0.9-1.1) Activated Partial Thromboplast Time 29 SEC (23-33) D-Dimer 0.88 mg/L FEU (0.00-0.49) H Sodium Level 141 MMOL/L (136-145) Potassium Level 4.8 MMOL/L (3.5-5.1) Chloride Level 106 MMOL/L (98-107) Carbon Dioxide Level 24 MMOL/L (21-32) Anion Gap 11 mmol/L (5-15) Blood Urea Nitrogen 40 mg/dL (7-18) H Creatinine 2.3 MG/DL (0.55-1.30) H Estimated Glomerular Filtration Rate 22.3 mL/min (>60) Glucose Level 214 MG/DL (74-106) H Calcium Level 8.8 MG/DL (8.5-10.1) Total Bilirubin 0.7 MG/DL (0.2-1.0) Aspartate Amino Transferase (AST) 143 U/L (15-37) H Alanine Aminotransferase (ALT) 343 U/L (12-78) H Alkaline Phosphatase 159 U/L (46-116) H Troponin I 0.000 ng/mL (0.000-0.056) Total Protein 7.6 G/DL (6.4-8.2) Albumin 2.8 G/DL (3.4-5.0) L Globulin 4.8 g/dL Albumin/Globulin Ratio 0.6 (1.0-2.7) L Urine Color Yellow Urine Appearance Cloudy Urine pH 5 (4.5-8.0) Urine Specific [place] 1.010 (1.005-1.035) Urine Protein 4+ (NEGATIVE) H Urine Glucose (UA) Negative (NEGATIVE) Urine Ketones Negative (NEGATIVE) Urine Blood 5+ (NEGATIVE) H Urine Nitrite Positive (NEGATIVE) H Urine Bilirubin Negative (NEGATIVE) Urine Urobilinogen Normal MG/DL (0.0-1.0) Urine Leukocyte Esterase 3+ (NEGATIVE) H Urine RBC 15-20 /HPF (0 - 2) H Urine WBC Tntc /HPF (0 - 2) H Urine Squamous Epithelial Cells Moderate /LPF (NONE/OCC) H Urine Bacteria Many /HPF (NONE) H (Nitin Saldaña MD) Other X-Ray Diagnostic Results Other X-Ray Diagnostic Results : X-Ray ordered: left knee # of Views/Limited Vs Complete: 3 View Indication: Pain EP Interpretation: Yes PA Xray: Interpretation reviewed, by supervising MD, and agrees with findings. Interpretation: no dislocation, no soft tissue swelling, no fractures, other - arthritic changes noted Impression: No acute disease Electronically Signed by: Louie CALHOUN Scribzoila Text COMPARISON: No relevant prior studies available. FINDINGS: Bones/joints: No acute fracture. No dislocation. Soft tissues: Unremarkable. IMPRESSION: No acute osseous abnormalities. (Louie Harper) CT/MRI/US Diagnostic Results CT/MRI/US Diagnostic Results : Imaging Test Ordered: venous duplex US LLE Impression no DVT COMPARISON: No relevant prior studies available. FINDINGS: Deep veins: No DVT in the visualized common femoral, femoral, proximal deep femoral or popliteal veins. The veins demonstrate normal color flow, are normally compressible, with normal phasic flow and/or augmentation response. Superficial veins: No thrombus in the visualized great saphenous vein. Soft tissues: No popliteal cyst. IMPRESSION: No DVT. (Louie Harper) Last Vital Signs Date Time Temp Pulse Resp B/P (MAP) Pulse Ox O2 Delivery O2 Flow Rate FiO2 10/17/20 19:10 99.7 10/17/20 18:01 110 20 113/62 (79) 93 Room Air (Louie Harper) Disposition: HOME, SELF-CARE Condition: Stable Scripts Cephalexin* (KEFLEX*) 500 Mg Capsule 500 MG ORAL EVERY 12 HOURS, #14 CAP 0 Refills Prov: Nitin Saldaña MD 10/17/20 Diclofenac Sodium (VOLTAREN) 100 Gm Gel..gram. 2 GM TP TID, #100 GM Prov: Louie Harper 10/17/20 Referrals: [facility],REFERRING (PCP) Patient Instructions: Arthritis, Dnaf-[id number], Chronic Kidney Disease, [id number], Fatty Liver Additional Instructions: Take medication as directed, follow-up with your oncologist as well as with your primary doctor for further evaluation, you also need to follow-up with grass farm laborer regarding your chronic kidney disease, if worsening symptoms return to the emergency room Louie Harper Oct 17, 2020 19:28 Nitin Saldaña MD Oct 17, 2020 21:21
--- NOTE | 2020-10-17 19:36 | Diagnostic Imaging Report ---
EXAM: US Duplex Left Lower Extremity Veins CLINICAL HISTORY: DVT TECHNIQUE: Real-time duplex ultrasound scan of the left lower extremity veins integrating B-mode two-dimensional vascular structure, Doppler spectral analysis, color flow Doppler imaging and compression. COMPARISON: No relevant prior studies available. FINDINGS: Deep veins: No DVT in the visualized common femoral, femoral, proximal deep femoral or popliteal veins. The veins demonstrate normal color flow, are normally compressible, with normal phasic flow and/or augmentation response. Superficial veins: No thrombus in the visualized great saphenous vein. Soft tissues: No popliteal cyst. IMPRESSION: No DVT.
[2020-10-17] MEDS ORDERED: VOLTAREN100 G1 TP (19:51)
[2020-10-17 20:45] LABS: APPEARANCE,URINE CLOUDY; BILIRUBIN, URINE NEGATIVE (NEGATIVE); GLUCOSE, URINE (UA) NEGATIVE (NEGATIVE); KETONES,URINE NEGATIVE (NEGATIVE); LEUKOCYTE ESTERASE ,URINE 3+ (NEGATIVE); NITRITE,URINE POSITIVE (NEGATIVE); PH,URINE 5 (4.5-8.0); PROTEIN,URINE 4+ (NEGATIVE); UROBILINOGEN,URINE NORMAL MG/DL (0.0-1.0)
[2020-10-17 20:46] LABS: COLOR,URINE YELLOW
[2020-10-17] MEDS ORDERED: CEPHALEXIN500 MG ORAL (20:49)
--- NOTE | 2020-10-17 21:00 | NUR ---
ER DISCHARGE NOTE: Patient is cleared to be discharged per ERMD, pt is aox4, on room air, with stable vital signs. pt was given dc and prescription instructions, pt was able to verbalize understanding, pt id band and iv site removed without complications. pt is able to ambulate with steady gait. pt took all belongings.
[2020-10-19] MEDS ORDERED: LOPERAMIDE2 MG PO (13:38)
[2020-10-19] MEDS ORDERED: ZOFRAN4 M3 ORAL (13:38)
[2020-10-19] MEDS ORDERED: LYNPARZA 150 MG (13:38)
[2020-10-19] MEDS ORDERED: AMLODIPINE BESYL5 MG ORAL (13:38)
== END 2020-10-18 21:00 | disposition home or self-care (01) ==
LOC: EMR 18:17
DX: I12.9 Hypertensive chronic kidney disease with stage 1 through stage 4 chronic kidney disease, or unspecified chronic kidney disease (principal); N18.9 Chronic kidney disease, unspecified; R79.89 Other specified abnormal findings of blood chemistry; M17.10 Unilateral primary osteoarthritis, unspecified knee; C56.9 Malignant neoplasm of unspecified ovary; E66.01 Morbid (severe) obesity due to excess calories; Z92.21 Personal history of antineoplastic chemotherapy; Z68.39 Body mass index [BMI] 39.0-39.9, adult
CPT/HCPCS: 36415; 73562; 80053; 81003; 84484; 85025; 85379; 85610; 85730; 87086; 87181; 93971; 96361; 96374; 96375; 99284; J1885; J2270; J2405; J7030

== ENCOUNTER 2020-10-19 12:21 | Inpatient (IN) | payer OTHER ==
[~2020-10-19] VITALS: Ht 154.9 cm; Wt 93.9 kg
[~2020-10-19 12:21] MED LIST changes: +VOLTAREN100 G1 TP
[2020-10-19] MEDS ORDERED: Omnipaque-300 100ml vial INJ PRN (12:45)
[2020-10-19] MEDS ORDERED: Cefepime HCl 2 GM in NS 110 ML IV ONE (12:45)
[2020-10-19] MEDS ORDERED: Vancomycin 1.5gm/300ml Premix 300 ML IVPB ONE (12:45)
[2020-10-19] MEDS ORDERED: Acetaminophen 500mg (ES) tab ORAL ONE (12:45)
--- NOTE | 2020-10-19 12:45 | NUR ---
ED Nurse Note: pt received chemo x3 days ago. since then she has been vomiting, fever and bodyaches. pt has port a cath but refused to access it.
--- NOTE | 2020-10-19 12:45 | Emergency Room Report ---
History of Present Illness General Chief Complaint: Generalized Weakness Source: Patient, Family Member Present Illness HPI 50-year-old female history of ovarian cancer currently on chemotherapy last chemo dose was 3 days ago presents with fever/chills, dysuria, body aches, generalized weakness prior to arrival no known aggravating alleviating factors severity is moderate, constant patient denies any chest pain or shortness of breath no cough patient presents for evaluation treatment Allergies: Coded Allergies: No Known Allergies (Unverified , 06/29/16) COVID-19 Screening Contact w/high risk pt: No Experienced COVID-19 symptoms?: Yes COVID-19 Testing performed BILLET RECORDER: Yes COVID-19 Screening: Negative COVID-19 COVID-19 Testing Source: nasal Patient History Past Medical History: see triage record Reviewed Nursing Documentation: PMH: Agreed; PSxH: Agreed Nursing Documentation-PMH Hx Cardiac Problems: No Hx Hypertension: Yes Hx Cancer: Yes - Ovarian Hx Gastrointestinal Problems: No Hx Neurological Problems: No Review of Systems All Other Systems: negative except mentioned in HPI Physical Exam Vital Signs Date Time Temp Pulse Resp B/P (MAP) Pulse Ox O2 Delivery O2 Flow Rate FiO2 10/19/20 12:35 100.8 120 22 152/79 (103) 98 Room Air Sp02 EP Interpretation: reviewed, normal General Appearance: alert, moderate distress Head: normocephalic, atraumatic Eyes: bilateral eye PERRL, bilateral eye EOMI ENT: uvula midline, moist mucus membranes Neck: supple, thyroid normal, supple/symm/no masses Respiratory: lungs clear, no respiratory distress, no retraction, no accessory muscle use Cardiovascular #1: normal peripheral pulses, no edema, no gallop, no murmur, tachycardia Gastrointestinal: non tender, soft, no guarding, no rebound Musculoskeletal: normal inspection Neurologic: alert, oriented x3 Psychiatric: mood/affect normal Skin: no rash, warm/dry Medical Decision Making Diagnostic Impression: Primary Impression: Sepsis Qualified Codes: A41.9 - Sepsis, unspecified organism Additional Impressions: Fever Qualified Codes: R50.9 - Fever, unspecified Dehydration ESBL (extended spectrum beta-lactamase) producing bacteria infection Pyelonephritis ER Course 50-year-old female presents with tachycardia, fever, dehydration Patient found to have a history of ESBL patient started initially on cefepime, patient switched to ertapenem for history of ESBL urinary tract infections Patient will be admitted to Dr. Guzman Patient given 2L NS resuscitation ertapenem, and vancomycin Laboratory Tests Test 10/19/20 12:53 White Blood Count 8.9 K/UL (4.8-10.8) Red Blood Count 4.00 M/UL (4.20-5.40) L Hemoglobin 12.2 G/DL (12.0-16.0) Hematocrit 39.8 % (37.0-47.0) Mean Corpuscular Volume 100 FL (80-99) H Mean Corpuscular Hemoglobin 30.5 PG (27.0-31.0) Mean Corpuscular Hemoglobin Concent 30.7 G/DL (32.0-36.0) L Red Cell Distribution Width 13.8 % (11.6-14.8) Platelet Count 87 K/UL (150-450) L Mean Platelet Volume 14.0 FL (6.5-10.1) H Neutrophils (%) (Auto) % (45.0-75.0) Lymphocytes (%) (Auto) % (20.0-45.0) Monocytes (%) (Auto) % (1.0-10.0) Eosinophils (%) (Auto) % (0.0-3.0) Basophils (%) (Auto) % (0.0-2.0) Differential Total Cells Counted 100 Neutrophils % (Manual) 86 % (45-75) H Lymphocytes % (Manual) 6 % (20-45) L Monocytes % (Manual) 4 % (1-10) Eosinophils % (Manual) 1 % (0-3) Basophils % (Manual) 0 % (0-2) Band Neutrophils 3 % (0-8) Platelet Estimate Decreased L Platelet Morphology Giant Platelets Rare Macrocytosis 1+ Prothrombin Time 10.5 SEC (9.30-11.50) Prothrombin Time INR 0.9 (0.9-1.1) Activated Partial Thromboplast Time 34 SEC (23-33) H Sodium Level 140 MMOL/L (136-145) Potassium Level 5.1 MMOL/L (3.5-5.1) Chloride Level 107 MMOL/L (98-107) Carbon Dioxide Level 23 MMOL/L (21-32) Anion Gap 10 mmol/L (5-15) Blood Urea Nitrogen 45 mg/dL (7-18) H Creatinine 3.5 MG/DL (0.55-1.30) H Estimated Glomerular Filtration Rate 13.8 mL/min (>60) Glucose Level 187 MG/DL (74-106) H Lactic Acid Level 1.60 mmol/L (0.4-2.0) Calcium Level 8.6 MG/DL (8.5-10.1) Phosphorus Level 3.0 MG/DL (2.5-4.9) Magnesium Level 2.5 MG/DL (1.8-2.4) H Total Bilirubin 0.8 MG/DL (0.2-1.0) Aspartate Amino Transferase (AST) 36 U/L (15-37) Alanine Aminotransferase (ALT) 159 U/L (12-78) H Alkaline Phosphatase 157 U/L (46-116) H Total Creatine Kinase 12 U/L (26-308) L Creatine Kinase MB < 0.5 NG/ML (0.0-3.6) Creatine Kinase MB Relative Index 4.1 Troponin I 0.000 ng/mL (0.000-0.056) Pro-B-Type Natriuretic Peptide 1317 pg/mL (0-125) H Total Protein 7.0 G/DL (6.4-8.2) Albumin 2.0 G/DL (3.4-5.0) L Globulin 5.0 g/dL Albumin/Globulin Ratio 0.4 (1.0-2.7) L Lipase 91 U/L (73-393) EKG Diagnostic Results Troponin ordered: Yes When was troponin ordered?: Oct 19, 2020 EKG Time: 14:16 EP Interpretation: Sinus tachycardia, rate 104, QTc 447, no acute ST elevations Rhythm Strip Diag. Results Rhythm Strip Time: 14:18 EP Interpretation: yes Rate: 108 Rhythm: other - Sinus tachycardia Chest X-Ray Diagnostic Results Chest X-Ray Diagnostic Results : Chest X-Ray Ordered: Yes # of Views/Limited/Complete: 1 View Indication: Chest Pain EP Interpretation: Yes Interpretation: no consolidation, no effusion, no pneumothorax, no acute cardiopulmonary disease Impression: No acute disease Electronically Signed by: Jonnie Ga MD CT/MRI/US Diagnostic Results CT/MRI/US Diagnostic Results : Impression Procedure: CT Abdomen Pelvis WO Contrast Indication: Abdominal pain, fever, diarrhea, body aches, history of chemotherapy for ovarian cancer Technique: Spiral acquisitions obtained through the abdomen and pelvis. No oral contrast utilized, per emergency room physician request No IV contrast utilized, per referring physician request.. Multiplanar reconstructions were generated. Total dose length product 1094 mGycm. CTDIvol(s) 19 mGy. Dose reduction achieved using automated exposure control Comparison: 01/08/2018 Findings: There is stranding of the perinephric fat on the right as well as some thickening of Gerota's fascia and slight indistinctness of the renal margins. This is not evident previously Some surgical clips are seen to the right of the inferior vena cava, evident previously. There is mild dilatation of the right renal collecting system and proximal ureter. No downstream obstructive lesion demonstrated. No renal or ureteral calculus demonstrated. No left renal or ureteral calculi, hydronephrosis, hydroureter, or perinephric fat stranding demonstrated. Lack of IV contrast limits assessment of the renal parenchyma. No gross renal parenchymal mass or cyst demonstrated. Lack of enteric contrast limits assessment of the GI tract. There are colonic diverticula. No evidence of acute diverticulitis. The appendix is not definitely visualized, but no findings to suggest acute appendicitis are evident. No small bowel distention or small bowel wall thickening. No free or loculated intraperitoneal gas or fluid is evident. The distal esophagus, stomach, duodenum are unremarkable. Lack of IV contrast limits assessment of the other solid organs. The liver is diffusely hypoattenuating, consistent with fatty change, with some focal sparing in the usual location adjacent to the gallbladder fossa. The gallbladder, bile ducts, pancreas, spleen, adrenals are unremarkable. There are prominent but not frankly enlarged retroperitoneal lymph nodes. The uterus and ovaries are absent. The bladder is unremarkable. No pelvic mass or adenopathy. The included lung bases demonstrate a 13 mm subpleural somewhat irregular opacity on the left, not evident previously. The tip of a central venous catheter is seen in the right atrium. The bones are unremarkable for age.. Impression: Perinephric fat stranding and mild right hydronephrosis/hydroureter without evidence of downstream obstructive lesion. Findings suggest nephritis/pyelitis/ureteritis. Correlate with clinical and laboratory findings Limited assessment of the GI tract, due to lack of enteric contrast administration 13 mm subpleural left lung parenchymal opacity. Probably a focus of atelectasis or consolidation, but follow-up CT imaging should be considered to confirm resolution and exclude underlying mass lesion Colonic diverticulosis. No evidence of acute diverticulitis Fatty liver Evidence of prior hysterectomy and bilateral nephrectomy and probably for retroperitoneal node dissection Central venous catheter is incidentally noted The CT scanner at [facility] is accredited by the [employer] and the scans are performed using protocols designed to limit radiation exposure to as low as reasonably achievable to attain images of sufficient resolution adequate for diagnostic evaluation. Dictated By: Jt Cook MD Electronically Signed By:Jt Cook MD Signed Date/Time10/19/20 1413 CC: Jonnie Ga MD Reevaluation Time: 14:24 Last Vital Signs Date Time Temp Pulse Resp B/P (MAP) Pulse Ox O2 Delivery O2 Flow Rate FiO2 10/19/20 12:35 100.8 120 22 152/79 (103) 98 Room Air Status: improved Disposition: ADMITTED INPATIENT Condition: Critical Referrals: [facility],REFERRING (PCP) Evaluation Current Stage of Sepsis: Sepsis Possible Source: Genitourinary Focused Exam Allergies: Coded Allergies: No Known Allergies (Unverified , 06/29/16) Date Exam Occurred: Oct 19, 2020 Time Exam Occurred: 14:26 Laboratory Studies Laboratory Tests Test 10/19/20 12:53 White Blood Count 8.9 K/UL (4.8-10.8) Red Blood Count 4.00 M/UL (4.20-5.40) L Hemoglobin 12.2 G/DL (12.0-16.0) Hematocrit 39.8 % (37.0-47.0) Mean Corpuscular Volume 100 FL (80-99) H Mean Corpuscular Hemoglobin 30.5 PG (27.0-31.0) Mean Corpuscular Hemoglobin Concent 30.7 G/DL (32.0-36.0) L Red Cell Distribution Width 13.8 % (11.6-14.8) Platelet Count 87 K/UL (150-450) L Mean Platelet Volume 14.0 FL (6.5-10.1) H Neutrophils (%) (Auto) % (45.0-75.0) Lymphocytes (%) (Auto) % (20.0-45.0) Monocytes (%) (Auto) % (1.0-10.0) Eosinophils (%) (Auto) % (0.0-3.0) Basophils (%) (Auto) % (0.0-2.0) Differential Total Cells Counted 100 Neutrophils % (Manual) 86 % (45-75) H Lymphocytes % (Manual) 6 % (20-45) L Monocytes % (Manual) 4 % (1-10) Eosinophils % (Manual) 1 % (0-3) Basophils % (Manual) 0 % (0-2) Band Neutrophils 3 % (0-8) Platelet Estimate Decreased L Platelet Morphology Giant Platelets Rare Macrocytosis 1+ Prothrombin Time 10.5 SEC (9.30-11.50) Prothromb Time International Ratio 0.9 (0.9-1.1) Activated Partial Thromboplast Time 34 SEC (23-33) H Sodium Level 140 MMOL/L (136-145) Potassium Level 5.1 MMOL/L (3.5-5.1) Chloride Level 107 MMOL/L (98-107) Carbon Dioxide Level 23 MMOL/L (21-32) Anion Gap 10 mmol/L (5-15) Blood Urea Nitrogen 45 mg/dL (7-18) H Creatinine 3.5 MG/DL (0.55-1.30) H Estimat Glomerular Filtration Rate 13.8 mL/min (>60) Glucose Level 187 MG/DL (74-106) H Lactic Acid Level 1.60 mmol/L (0.4-2.0) Calcium Level 8.6 MG/DL (8.5-10.1) Phosphorus Level 3.0 MG/DL (2.5-4.9) Magnesium Level 2.5 MG/DL (1.8-2.4) H Total Bilirubin 0.8 MG/DL (0.2-1.0) Aspartate Amino Transf (AST/SGOT) 36 U/L (15-37) Alanine Aminotransferase (ALT/SGPT) 159 U/L (12-78) H Alkaline Phosphatase 157 U/L (46-116) H Total Creatine Kinase 12 U/L (26-308) L Creatine Kinase MB < 0.5 NG/ML (0.0-3.6) Creatine Kinase MB Relative Index 4.1 Troponin I 0.000 ng/mL (0.000-0.056) Pro-B-Type Natriuretic Peptide 1317 pg/mL (0-125) H Total Protein 7.0 G/DL (6.4-8.2) Albumin 2.0 G/DL (3.4-5.0) L Globulin 5.0 g/dL Albumin/Globulin Ratio 0.4 (1.0-2.7) L Lipase 91 U/L (73-393) Vital Signs Last 24 Hour Vital Signs Date Time Temp Pulse Resp B/P (MAP) Pulse Ox O2 Delivery O2 Flow Rate FiO2 10/19/20 12:45 121 24 Room Air 10/19/20 12:35 100.8 120 22 152/79 (103) 98 Room Air Respiratory Exam: Clear Cardiovascular Exam: S1, S2, Tachycardia Capillary Refill: Less Than 2 Seconds Peripheral Pulse: Strong Pulse Location: Radial Jonnie Ga MD Oct 19, 2020 12:45
[2020-10-19 13:07] LABS: HEMATOCRIT 39.8 % (37.0-47.0); HEMOGLOBIN 12.2 G/DL (12.0-16.0); MEAN CORPUSCULAR VOLUME 100 FL (80-99); PLATELET COUNT 87 K/UL (150-450); RED CELL DISTRIBUTION WIDTH 13.8 % (11.6-14.8); WHITE BLOOD COUNT 8.9 K/UL (4.8-10.8)
[2020-10-19 13:35] LABS: INR 0.9 (0.9-1.1)
[2020-10-19 13:37] LABS: ANION GAP 10 mmol/L (5-15); BLOOD UREA NITROGEN 45 mg/dL (7-18); CALCIUM 8.6 MG/DL (8.5-10.1); CARBON DIOXIDE 23 MMOL/L (21-32); CHLORIDE 107 MMOL/L (98-107); CREATININE 3.5 MG/DL (0.55-1.30); POTASSIUM 5.1 MMOL/L (3.5-5.1); SODIUM 140 MMOL/L (136-145)
[2020-10-19] MEDS ORDERED: AMLODIPINE BESYL5 MG ORAL (13:38)
[2020-10-19] MEDS ORDERED: LYNPARZA 150 MG (13:38)
[2020-10-19] MEDS ORDERED: ZOFRAN4 M3 ORAL (13:38)
[2020-10-19] MEDS ORDERED: LOPERAMIDE2 MG PO (13:38)
[2020-10-19 13:50] LABS: ALANINE AMINOTRANSFERASE 159 U/L (12-78); ALBUMIN/GLOBULIN RATIO 0.4 (1.0-2.7); ALKALINE PHOSPHATASE 157 U/L (46-116); ASPARTATE AMINO TRANSFERASE 36 U/L (15-37); BILIRUBIN,TOTAL 0.8 MG/DL (0.2-1.0); CKMB < 0.5 NG/ML (0.0-3.6); CREATINE KINASE 12 U/L (26-308)
[2020-10-19] MEDS ORDERED: Ertapenem 1 GM in NS 55 ML IV ONE (14:00)
--- NOTE | 2020-10-19 14:18 | Diagnostic Imaging Report ---
Indication: Abdominal pain, fever, diarrhea, body aches, history of chemotherapy for ovarian cancer Technique: Spiral acquisitions obtained through the abdomen and pelvis. No oral contrast utilized, per emergency room physician request No IV contrast utilized, per referring physician request.. Multiplanar reconstructions were generated. Total dose length product 1094 mGycm. CTDIvol(s) 19 mGy. Dose reduction achieved using automated exposure control Comparison: 01/08/2018 Findings: There is stranding of the perinephric fat on the right as well as some thickening of Gerota's fascia and slight indistinctness of the renal margins. This is not evident previously Some surgical clips are seen to the right of the inferior vena cava, evident previously. There is mild dilatation of the right renal collecting system and proximal ureter. No downstream obstructive lesion demonstrated. No renal or ureteral calculus demonstrated. No left renal or ureteral calculi, hydronephrosis, hydroureter, or perinephric fat stranding demonstrated. Lack of IV contrast limits assessment of the renal parenchyma. No gross renal parenchymal mass or cyst demonstrated. Lack of enteric contrast limits assessment of the GI tract. There are colonic diverticula. No evidence of acute diverticulitis. The appendix is not definitely visualized, but no findings to suggest acute appendicitis are evident. No small bowel distention or small bowel wall thickening. No free or loculated intraperitoneal gas or fluid is evident. The distal esophagus, stomach, duodenum are unremarkable. Lack of IV contrast limits assessment of the other solid organs. The liver is diffusely hypoattenuating, consistent with fatty change, with some focal sparing in the usual location adjacent to the gallbladder fossa. The gallbladder, bile ducts, pancreas, spleen, adrenals are unremarkable. There are prominent but not frankly enlarged retroperitoneal lymph nodes. The uterus and ovaries are absent. The bladder is unremarkable. No pelvic mass or adenopathy. The included lung bases demonstrate a 13 mm subpleural somewhat irregular opacity on the left, not evident previously. The tip of a central venous catheter is seen in the right atrium. The bones are unremarkable for age.. Impression: Perinephric fat stranding and mild right hydronephrosis/hydroureter without evidence of downstream obstructive lesion. Findings suggest nephritis/pyelitis/ureteritis. Correlate with clinical and laboratory findings Limited assessment of the GI tract, due to lack of enteric contrast administration 13 mm subpleural left lung parenchymal opacity. Probably a focus of atelectasis or consolidation, but follow-up CT imaging should be considered to confirm resolution and exclude underlying mass lesion Colonic diverticulosis. No evidence of acute diverticulitis Fatty liver Evidence of prior hysterectomy and bilateral nephrectomy and probably for retroperitoneal node dissection Central venous catheter is incidentally noted The CT scanner at [facility] is accredited by the [employer] and the scans are performed using protocols designed to limit radiation exposure to as low as reasonably achievable to attain images of sufficient resolution adequate for diagnostic evaluation.
[2020-10-19 14:54] VITALS: BP 152/79
[2020-10-19 14:55] VITALS: BP 135/87
--- NOTE | 2020-10-19 15:12 | NUR ---
ED Nurse Note:daughter Ann Marie [phone]
--- NOTE | 2020-10-19 15:14 | NUR ---
ED Nurse Note: pt appears to be feeling a little better, still c/o headache. pt was able to use bedside toilet with assist. pt is afebrile and resting quietly in no noted distress. will continue to monitor.
--- NOTE | 2020-10-19 15:15 | History & Physical ---
History and Physical History & Physicial Attending physician: Dr. Guzman Reason for admission: Fever/chills, dysuria, body aches, history of ovarian cancer on chemo HPI: This is a 50-year-old female with past medical history of ovarian cancer on chemotherapy who presented to the ED for evaluation of fever/chills, dysuria, body aches, generalized weakness x3 days. Patient reports she received last chemo dose 3 days ago. Patient reports testing negative for COVID-19 1 week ago from an outside source. The abdomen/pelvis CT without contrast shows perinephritic fat stranding and mild right hydronephrosis/hydroureter without evidence of downstream obstructive lesion suggesting nephritis/pyelonephritis/ureteritis. Patient received antibiotics, IV fluids and is awaiting admission in the ER. PMHx: Ovarian cancer, on chemo, oophorectomy in 2016 Meds: Amlodipine, loperamide, Zofran Allergies: No known allergies FHx: Unknown Personal/Social Hx: From home ROS: HEENT: Denies any headaches, blurry vision, hoarseness, dysphagia, hearing loss, tinnitus, or loss of balance. Chest and lung: Denies any chest discomfort or hemoptysis Cardiovascular: Denies any exertional chest pain, pressure, palpitations, orthopnea, PND, or ankle swelling Gastrointestinal: Reports nausea Genitourinary: Reports dysuria. Neurological: Denies seizure activity, dizziness or fainting episode PE: VS: BP 152/79, HR 121, RR 24, wt 93 kg, ht 155 cm General: In moderate distress, normal work of breathing on room air HEENT: Head examination reveals that the head is normocephalic, atraumatic without deformity or unusual swelling. Pupils are round, reactive to light and accommodation normally. There is no nystagmus, lid lag or exophthalmos. Nasal mucosa is pink. Vision is normal. Chest and Lung: Reveals clear, normal, symmetrical breath sounds with no adventitious sound. Expansion is normal. There are no surgical scars. Cardiovascular: Reveals normal S1, S2 without murmurs, rubs or clicks Abdomen: Obese, well-healed vertical, linear scar in abdomen from oophorectomy, soft with no tenderness or organomegaly Rectal: Deferred Musculoskeletal: There is no tenderness to palpation. Range of motion is normal Neurological: Cranial nerves II to XII are intact. Gait is normal without ataxia. DTRs are normal. Babinski is downgoing. Laboratory data: Lab testing shows platelet 87 Chemistries BUN 45, creatinine 3.5, glucose 187, magnesium 2.5, ALT 159 Impression and recommendation: 1. Dysuria -CT shows signs of ascending UTI -We will collect urine for UA with urine culture -Given her history of ESBL UTI, will empirically treat -We will consult ID 2. ROMAIN on CKD -We will continue IV fluids -We will consult nephro 3. Hyperglycemia -We will start insulin sliding scale 4. Thrombocytopenia -We will consult heme-onc 5. History of ovarian cancer, on chemo -We will consult heme-onc 6. Elevated ALT -Monitor ALT 7. Elevated BNP 8. Hypertension 9. Sepsis with tachycardia and fever - ID has been consulted DVT ppx - Venous duplex US ordered; SCD if negative The care for this patient was discussed with my supervising physician. Time spent for this case was approximately 31 minutes. Mihai Greene Oct 19, 2020 15:14
--- NOTE | 2020-10-19 15:40 | NUR ---
NURSE NOTES: Received report from GABRIEL Callahan. Patient observed to be awake, alert, and oriented x4. Seen lying in bed, with HOB elevated currently on room air no s/sx of SOB/Distress, no c/o any pain or discomfort. Patient on contact and droplet prec PUI COVID. Patient with IV access on bot RAC and LAC both lines asymptomatic, inplace and intact. LJ Greene entered admission orders. All patient's belongings checked and accounted for. Family notified of patient's admission to unit. Head to toe skin assessment done. Bed placed on lowest and locked, call light placed within reach and will continue to monitor for any changes in patient's condtion.
--- NOTE | 2020-10-19 16:06 | Diagnostic Imaging Report ---
Indication: Cough Technique: One view of the chest Comparison: 07/14/2018 Findings: There is a right chest port catheter, which is different in configuration as compared to the previous exam so presumably exchanged in the interim. There is some atelectasis at the right lung base. The lungs and pleural spaces are otherwise clear. The heart size is normal. Impression: Hypoventilatory exam with right basilar atelectasis. No acute process otherwise
--- NOTE | 2020-10-19 16:45 | NUR ---
NURSE NOTES: Patient with elevated temp of 100.4 and complaining of headache 3/10. Provided patient with tylenol 650 will continue to monitor patient for any changes in condition.
[2020-10-19] MEDS: NovoLOG Insulin Flexpen SUBQ SCH ×2 (17:10→20:48)
[2020-10-19 17:22] LABS: BILIRUBIN, URINE NEGATIVE (NEGATIVE); GLUCOSE, URINE (UA) NEGATIVE (NEGATIVE); KETONES,URINE NEGATIVE (NEGATIVE); LEUKOCYTE ESTERASE ,URINE 1+ (NEGATIVE); NITRITE,URINE NEGATIVE (NEGATIVE); PH,URINE 5 (4.5-8.0); PROTEIN,URINE 3+ (NEGATIVE); UROBILINOGEN,URINE NORMAL MG/DL (0.0-1.0)
[2020-10-19 17:31] LABS: APPEARANCE,URINE SLIGHTLY CLOUDY; COLOR,URINE YELLOW
--- NOTE | 2020-10-19 18:00 | NUR ---
NURSE NOTES: Rechecked patient's temp after providing tylenol currently at 101.7 cooling measures provided, will continue to monitor.
--- NOTE | 2020-10-19 18:36 | Consultation ---
History of Present Illness General Chief Complaint: Generalized Weakness Reason for Consultation: ROMAIN Present Illness HPI This is a 50-year-old female with past medical history of ovarian cancer on chemotherapy who presented to the ED for evaluation of fever/chills, dysuria, body aches, generalized weakness x3 days. Patient reports she received last chemo dose 3 days ago. Patient reports testing negative for COVID-19 1 week ago from an outside source. The abdomen/pelvis CT without contrast shows perinephritic fat stranding and mi ld right hydronephrosis/hydroureter without evidence of downstream obstructive lesion suggesting nephritis/pyelonephritis/ureteritis. Patient received antibiotics, IV fluids and is awaiting admission in the ER. PMHx: Ovarian cancer, on chemo, oophorectomy in 2016 Meds: Amlodipine, loperamide, Zofran Allergies: No known allergies Allergies: Coded Allergies: No Known Allergies (Unverified , 06/29/16) Medication History Scheduled Amlodipine Besylate* (Amlodipine Besylate*), 5 MG ORAL DAILY, (Reported) Cephalexin* (Keflex*), 500 MG ORAL EVERY 12 HOURS Diclofenac Sodium (Voltaren), 2 GM TP TID Scheduled PRN Acetaminophen* (Tylenol Extra Strength*), 500 MG ORAL Q8H PRN for Prn Headache/Temp > 101 Hydrocodone Bit/Acetaminophen 5-325* ([place] 5-325*), 1 TAB ORAL Q6H PRN for For Pain Ondansetron* (Zofran*), 4 MG ORAL Q6H PRN for Nausea & Vomiting, (Reported) Miscellaneous Medications Loperamide Hcl (Loperamide), 2 MG PO, (Reported) [lynparza 150mg], (Reported) Discontinued Medications Hydrocodone/Acetaminophen 5-325* (Hydrocodone/Acetaminophen 5-325*), 1 TAB ORAL Q6H PRN for For Pain Discontinued Reason: Therapy completed Ibuprofen (Motrin), 600 MG ORAL THREE TIMES A DAY Discontinued Reason: Therapy completed Unable to Obtain Medications (Unable To Obtain Meds), (Reported) Discontinued Reason: Therapy completed Patient History Healthcare decision maker Resuscitation status Advanced Directive on File Review of Systems All Other Systems: negative except mentioned in HPI Physical Exam General Appearance: no apparent distress, alert Lines, tubes and drains: peripheral HEENT: normocephalic, atraumatic Neck: non-tender, normal alignment Respiratory/Chest: chest wall non-tender Cardiovascular/Chest: normal peripheral pulses, normal rate, regular rhythm Abdomen: normal bowel sounds, non tender, soft Extremities: normal range of motion, non-tender, normal inspection Skin Exam: normal pigmentation, warm/dry Neurologic: alert, oriented x 3 Last 24 Hour Vital Signs Date Time Temp Pulse Resp B/P (MAP) Pulse Ox O2 Delivery O2 Flow Rate FiO2 10/19/20 17:49 101.7 10/19/20 16:30 Room Air 10/19/20 16:00 98 10/19/20 15:27 98.6 98 24 135/87 98 Room Air 10/19/20 15:26 98.6 10/19/20 14:55 98.6 98 24 135/87 98 Room Air 10/19/20 14:54 98.6 24 152/79 98 Room Air 10/19/20 12:45 121 24 Room Air 10/19/20 12:35 100.8 120 22 152/79 (103) 98 Room Air Laboratory Tests Test 10/19/20 12:53 10/19/20 14:45 10/19/20 16:59 White Blood Count 8.9 K/UL (4.8-10.8) Red Blood Count 4.00 M/UL (4.20-5.40) L Hemoglobin 12.2 G/DL (12.0-16.0) Hematocrit 39.8 % (37.0-47.0) Mean Corpuscular Volume 100 FL (80-99) H Mean Corpuscular Hemoglobin 30.5 PG (27.0-31.0) Mean Corpuscular Hemoglobin Concent 30.7 G/DL (32.0-36.0) L Red Cell Distribution Width 13.8 % (11.6-14.8) Platelet Count 87 K/UL (150-450) L Mean Platelet Volume 14.0 FL (6.5-10.1) H Neutrophils (%) (Auto) % (45.0-75.0) Lymphocytes (%) (Auto) % (20.0-45.0) Monocytes (%) (Auto) % (1.0-10.0) Eosinophils (%) (Auto) % (0.0-3.0) Basophils (%) (Auto) % (0.0-2.0) Differential Total Cells Counted 100 Neutrophils % (Manual) 86 % (45-75) H Lymphocytes % (Manual) 6 % (20-45) L Monocytes % (Manual) 4 % (1-10) Eosinophils % (Manual) 1 % (0-3) Basophils % (Manual) 0 % (0-2) Band Neutrophils 3 % (0-8) Platelet Estimate Decreased L Platelet Morphology Giant Platelets Rare Macrocytosis 1+ Prothrombin Time 10.5 SEC (9.30-11.50) Prothromb Time International Ratio 0.9 (0.9-1.1) Activated Partial Thromboplast Time 34 SEC (23-33) H Sodium Level 140 MMOL/L (136-145) Potassium Level 5.1 MMOL/L (3.5-5.1) Chloride Level 107 MMOL/L (98-107) Carbon Dioxide Level 23 MMOL/L (21-32) Anion Gap 10 mmol/L (5-15) Blood Urea Nitrogen 45 mg/dL (7-18) H Creatinine 3.5 MG/DL (0.55-1.30) H Estimat Glomerular Filtration Rate 13.8 mL/min (>60) Glucose Level 187 MG/DL (74-106) H Lactic Acid Level 1.60 mmol/L (0.4-2.0) Calcium Level 8.6 MG/DL (8.5-10.1) Phosphorus Level 3.0 MG/DL (2.5-4.9) Magnesium Level 2.5 MG/DL (1.8-2.4) H Total Bilirubin 0.8 MG/DL (0.2-1.0) Aspartate Amino Transf (AST/SGOT) 36 U/L (15-37) Alanine Aminotransferase (ALT/SGPT) 159 U/L (12-78) H Alkaline Phosphatase 157 U/L (46-116) H Total Creatine Kinase 12 U/L (26-308) L Creatine Kinase MB < 0.5 NG/ML (0.0-3.6) Creatine Kinase MB Relative Index 4.1 Troponin I 0.000 ng/mL (0.000-0.056) Pro-B-Type Natriuretic Peptide 1317 pg/mL (0-125) H Total Protein 7.0 G/DL (6.4-8.2) Albumin 2.0 G/DL (3.4-5.0) L Globulin 5.0 g/dL Albumin/Globulin Ratio 0.4 (1.0-2.7) L Lipase 91 U/L (73-393) Urine Color Yellow Urine Appearance Slightly cloudy Urine pH 5 (4.5-8.0) Urine Specific [place] 1.010 (1.005-1.035) Urine Protein 3+ (NEGATIVE) H Urine Glucose (UA) Negative (NEGATIVE) Urine Ketones Negative (NEGATIVE) Urine Blood 5+ (NEGATIVE) H Urine Nitrite Negative (NEGATIVE) Urine Bilirubin Negative (NEGATIVE) Urine Urobilinogen Normal MG/DL (0.0-1.0) Urine Leukocyte Esterase 1+ (NEGATIVE) H Urine RBC 40-60 /HPF (0 - 2) H Urine WBC 30-40 /HPF (0 - 2) H Urine Squamous Epithelial Cells Few /LPF (NONE/OCC) Urine Bacteria Moderate /HPF (NONE) H POC Whole Blood Glucose 145 MG/DL (74-106) H Height (Feet): 5 Height (Inches): 1.00 Weight (Pounds): 207 Medications Current Medications Medications (Trade) Dose Ordered Sig/Abhay Route PRN Reason Start Time Stop Time Status Last Admin Dose Admin Acetaminophen (Tylenol) 650 mg Q6H PRN ORAL Mild Pain (Pain Scale 1-3) 10/19/20 16:15 11/18/20 16:14 10/19/20 17:19 Acetaminophen (Tylenol) 650 mg Q6H PRN ORAL Temp >100.5 10/19/20 16:15 11/18/20 16:14 Amlodipine Besylate (Norvasc) 5 mg DAILY ORAL 10/20/20 09:00 11/19/20 08:59 Dextrose (Dextrose 50%) 25 ml Q30M PRN IV Hypoglycemia 10/19/20 15:15 01/17/21 15:14 Dextrose (Dextrose 50%) 50 ml Q30M PRN IV Hypoglycemia 10/19/20 15:15 01/17/21 15:14 Diclofenac Sodium (Voltaren gel) 1 applic TID TOPIC 10/19/20 18:00 01/17/21 17:59 UNV Insulin Aspart (NovoLOG) BEFORE MEALS AND HS SUBQ 10/19/20 17:00 01/17/21 16:59 10/19/20 17:10 Sodium Chloride 1,000 ml @ 50 mls/hr Q20H IVLG 10/19/20 16:15 11/18/20 16:14 10/19/20 16:57 Assessment/Plan Diagnosis [place] [facility]: #ROMAIN likely pre-renal azotemia - r/o early ATN- in the setting of sepsis due to pyelo #Pyelonephritis #sepsis due to pyelo #h/o ovarian cancer - IVF - check urine chem - antibiotics - renal US - amlodipine 5mg daily - monitor renal function and electrolyte Time spent 65 min Tejinder Mojica M.D. Oct 19, 2020 18:36
[2020-10-19 19:30] LABS: ANION GAP 11 mmol/L (5-15); BLOOD UREA NITROGEN 44 mg/dL (7-18); CALCIUM 8.7 MG/DL (8.5-10.1); CARBON DIOXIDE 23 MMOL/L (21-32); CHLORIDE 106 MMOL/L (98-107); CREATININE 3.4 MG/DL (0.55-1.30); PHOSPHORUS 3.1 MG/DL (2.5-4.9); POTASSIUM 5.2 MMOL/L (3.5-5.1); SODIUM 140 MMOL/L (136-145)
--- NOTE | 2020-10-19 19:56 | NUR ---
NURSE HAND-OFF REPORT: Important Events on Shift:NEW ADMIT, COVID MONITORING Patient Status: STABLE Diet: REG Pending Orders: CREATININE URINE RANDOM, SODIUM RANDOM, VENOUD DUPLEX,US RENAL Pending Results/Labs:N/A Pending MD notification:N/A Latest Vital Signs: Temperature 101.7 , Pulse 98 , B/P 135 /87 , Respiratory Rate 24 , O2 SAT 98 , Room Air, O2 Flow Rate . Vital Sign Comment: EP. OF FEVER EKG Rhythm: Sinus Rhythm Rhythm change?: N MD Notified?: - MD Response: Latest Cruz Fall Score: 30 Fall Risk: Medium Risk Safety Measures: Call light Within Reach, Bed Alarm Zone 2, Side Rails Side Rails x2, Bed position Low and Locked. Fall Precautions: Yellow Socks Report given to GABRIEL Penny.
--- NOTE | 2020-10-19 19:57 | NUR ---
NURSE NOTES: Important Events on Shift: Received report from Em Degroot RN. Pt is newly admitted during AM shift. Pt febrile at 102F. Confirmed with pharmacy that pt is able receive Tylenol for fever per NOV order, see NOV. Cooling measures including ice packs also started. Will continue to monitor closely. Will continue plan of care. Patient Status: full code Diet: regular Pending Orders: none Pending Results/Labs: U/A, ferritin, iron, mag, parathyroid, phos., renal panel, vit D 25. Pending MD notification: none Latest Vital Signs: Temperature 98.6 , Pulse 95 , B/P 129 /79 , Respiratory Rate 20 , O2 SAT 98 , Room Air, O2 Flow Rate . Vital Sign Comment: Febrile during AM shift, received Tylenol. EKG Rhythm: Sinus Rhythm Rhythm change?: N MD Notified?: - MD Response: Latest Cruz Fall Score: 35 Fall Risk: Medium Risk Safety Measures:YES Call light Within Reach, Bed Alarm Zone 1, Side Rails Side Rails x3, Bed position Low and Locked. Fall Precautions: YES Yellow Socks Yellow Gown Door Sign Patient Fall Education YES
[2020-10-19 20:00] VITALS: BP 117/82
[2020-10-19] MEDS ORDERED: Sodium Polystyrene Sulfonate 15gm Powder ORAL SCH (20:00)
[2020-10-19] MEDS: Diclofenac 1% Gel 100gm TOPIC SCH (21:16)
[2020-10-20] VITALS: BP 129/79
[2020-10-20 04:00] VITALS: BP 103/65
[2020-10-20] MEDS: NovoLOG Insulin Flexpen SUBQ SCH ×4 (05:40→20:23)
--- NOTE | 2020-10-20 06:49 | Consultation ---
History of Present Illness General Chief Complaint: Generalized Weakness Present Illness Allergies: Coded Allergies: No Known Allergies (Unverified , 06/29/16) Medication History Scheduled Amlodipine Besylate* (Amlodipine Besylate*), 5 MG ORAL DAILY, (Reported) Cephalexin* (Keflex*), 500 MG ORAL EVERY 12 HOURS Diclofenac Sodium (Voltaren), 2 GM TP TID Scheduled PRN Acetaminophen* (Tylenol Extra Strength*), 500 MG ORAL Q8H PRN for Prn Headache/Temp > 101 Hydrocodone Bit/Acetaminophen 5-325* ([place] 5-325*), 1 TAB ORAL Q6H PRN for For Pain Ondansetron* (Zofran*), 4 MG ORAL Q6H PRN for Nausea & Vomiting, (Reported) Miscellaneous Medications Loperamide Hcl (Loperamide), 2 MG PO, (Reported) [lynparza 150mg], (Reported) Discontinued Medications Hydrocodone/Acetaminophen 5-325* (Hydrocodone/Acetaminophen 5-325*), 1 TAB ORAL Q6H PRN for For Pain Discontinued Reason: Therapy completed Ibuprofen (Motrin), 600 MG ORAL THREE TIMES A DAY Discontinued Reason: Therapy completed Unable to Obtain Medications (Unable To Obtain Meds), (Reported) Discontinued Reason: Therapy completed Patient History Healthcare decision maker Resuscitation status Advanced Directive on File Physical Exam Last 24 Hour Vital Signs Date Time Temp Pulse Resp B/P (MAP) Pulse Ox O2 Delivery O2 Flow Rate FiO2 10/20/20 05:41 100.3 10/20/20 04:00 95 10/20/20 04:00 99.6 103 22 103/65 (78) 97 10/20/20 00:00 109 10/20/20 00:00 98.6 104 20 129/79 (96) 98 10/19/20 21:45 98.5 10/19/20 21:00 Room Air 10/19/20 20:00 102.0 107 25 117/82 (94) 95 10/19/20 20:00 107 10/19/20 17:49 101.7 10/19/20 16:30 Room Air 10/19/20 16:00 98 10/19/20 15:27 98.6 98 24 135/87 98 Room Air 10/19/20 15:26 98.6 10/19/20 14:55 98.6 98 24 135/87 98 Room Air 10/19/20 14:54 98.6 24 152/79 98 Room Air 10/19/20 12:45 121 24 Room Air 10/19/20 12:35 100.8 120 22 152/79 (103) 98 Room Air Intake and Output 10/19/20 10/20/20 19:00 07:00 Intake Total 120 ml 3 ml Output Total 6650 ml Balance 120 ml -6647 ml Intake Oral 120 ml Other 3 ml Output Urine Total 6650 ml Laboratory Tests Test 10/19/20 12:53 10/19/20 14:45 10/19/20 16:59 10/19/20 20:45 White Blood Count 8.9 K/UL (4.8-10.8) Red Blood Count 4.00 M/UL (4.20-5.40) L Hemoglobin 12.2 G/DL (12.0-16.0) Hematocrit 39.8 % (37.0-47.0) Mean Corpuscular Volume 100 FL (80-99) H Mean Corpuscular Hemoglobin 30.5 PG (27.0-31.0) Mean Corpuscular Hemoglobin Concent 30.7 G/DL (32.0-36.0) L Red Cell Distribution Width 13.8 % (11.6-14.8) Platelet Count 87 K/UL (150-450) L Mean Platelet Volume 14.0 FL (6.5-10.1) H Neutrophils (%) (Auto) % (45.0-75.0) Lymphocytes (%) (Auto) % (20.0-45.0) Monocytes (%) (Auto) % (1.0-10.0) Eosinophils (%) (Auto) % (0.0-3.0) Basophils (%) (Auto) % (0.0-2.0) Differential Total Cells Counted 100 Neutrophils % (Manual) 86 % (45-75) H Lymphocytes % (Manual) 6 % (20-45) L Monocytes % (Manual) 4 % (1-10) Eosinophils % (Manual) 1 % (0-3) Basophils % (Manual) 0 % (0-2) Band Neutrophils 3 % (0-8) Platelet Estimate Decreased L Platelet Morphology Giant Platelets Rare Macrocytosis 1+ Prothrombin Time 10.5 SEC (9.30-11.50) Prothromb Time International Ratio 0.9 (0.9-1.1) Activated Partial Thromboplast Time 34 SEC (23-33) H Sodium Level 140 MMOL/L (136-145) Potassium Level 5.2 MMOL/L (3.5-5.1) H Chloride Level 106 MMOL/L (98-107) Carbon Dioxide Level 23 MMOL/L (21-32) Anion Gap 11 mmol/L (5-15) Blood Urea Nitrogen 44 mg/dL (7-18) H Creatinine 3.4 MG/DL (0.55-1.30) H Estimat Glomerular Filtration Rate 14.2 mL/min (>60) Glucose Level 186 MG/DL (74-106) H Lactic Acid Level 1.60 mmol/L (0.4-2.0) Calcium Level 8.7 MG/DL (8.5-10.1) Phosphorus Level 3.1 MG/DL (2.5-4.9) Magnesium Level 2.5 MG/DL (1.8-2.4) H Total Bilirubin 0.8 MG/DL (0.2-1.0) Aspartate Amino Transf (AST/SGOT) 36 U/L (15-37) Alanine Aminotransferase (ALT/SGPT) 159 U/L (12-78) H Alkaline Phosphatase 157 U/L (46-116) H Total Creatine Kinase 12 U/L (26-308) L Creatine Kinase MB < 0.5 NG/ML (0.0-3.6) Creatine Kinase MB Relative Index 4.1 Troponin I 0.000 ng/mL (0.000-0.056) Pro-B-Type Natriuretic Peptide 1317 pg/mL (0-125) H Total Protein 7.0 G/DL (6.4-8.2) Albumin 2.0 G/DL (3.4-5.0) L Globulin 5.0 g/dL Albumin/Globulin Ratio 0.4 (1.0-2.7) L Lipase 91 U/L (73-393) Urine Color Yellow Urine Appearance Slightly cloudy Urine pH 5 (4.5-8.0) Urine Specific [place] 1.010 (1.005-1.035) Urine Protein 3+ (NEGATIVE) H Urine Glucose (UA) Negative (NEGATIVE) Urine Ketones Negative (NEGATIVE) Urine Blood 5+ (NEGATIVE) H Urine Nitrite Negative (NEGATIVE) Urine Bilirubin Negative (NEGATIVE) Urine Urobilinogen Normal MG/DL (0.0-1.0) Urine Leukocyte Esterase 1+ (NEGATIVE) H Urine RBC 40-60 /HPF (0 - 2) H Urine WBC 30-40 /HPF (0 - 2) H Urine Squamous Epithelial Cells Few /LPF (NONE/OCC) Urine Bacteria Moderate /HPF (NONE) H POC Whole Blood Glucose 145 MG/DL (74-106) H 140 MG/DL (74-106) H Test 10/20/20 05:26 POC Whole Blood Glucose 122 MG/DL (74-106) H Height (Feet): 5 Height (Inches): 1.00 Weight (Pounds): 207 Medications Current Medications Medications (Trade) Dose Ordered Sig/Abhay Route PRN Reason Start Time Stop Time Status Last Admin Dose Admin Acetaminophen (Tylenol) 650 mg Q6H PRN ORAL Mild Pain (Pain Scale 1-3) 10/19/20 16:15 11/18/20 16:14 10/19/20 17:19 Acetaminophen (Tylenol) 650 mg Q6H PRN ORAL Temp >100.5 10/19/20 16:15 11/18/20 16:14 10/20/20 05:11 Amlodipine Besylate (Norvasc) 5 mg DAILY ORAL 10/20/20 09:00 11/19/20 08:59 Dextrose (Dextrose 50%) 25 ml Q30M PRN IV Hypoglycemia 10/19/20 15:15 01/17/21 15:14 Dextrose (Dextrose 50%) 50 ml Q30M PRN IV Hypoglycemia 10/19/20 15:15 01/17/21 15:14 Diclofenac Sodium (Voltaren gel) 1 applic TID TOPIC 10/19/20 21:00 01/17/21 20:59 10/19/20 21:16 Insulin Aspart (NovoLOG) BEFORE MEALS AND HS SUBQ 10/19/20 17:00 01/17/21 16:59 10/19/20 20:48 Sodium Chloride 1,000 ml @ 50 mls/hr Q20H IVLG 10/19/20 16:15 11/18/20 16:14 10/19/20 16:57 Sodium Chloride 1,000 ml @ 75 mls/hr [id number] IV 10/19/20 18:45 11/18/20 18:44 Assessment/Plan Assessment/Plan: Hematology Consultation REQ MD: Huey Guzman [facility]: Ovarian cancer DOS: 10/20/2020 HPI 50-year-old female history of ovarian cancer currently on chemotherapy last chemo dose was 3 days ago presents with fever/chills, dysuria, body aches, ge neralized weakness prior to arrival no known aggravating alleviating factors severity is moderate, constant patient denies any chest pain or shortness of breath no cough patient presents for evaluation treatment, hx of ovarian cancer as per below. Allergies: No Known Allergies (Unverified , 06/29/16) COVID-19 Screening Contact w/high risk pt: No Experienced COVID-19 symptoms?: Yes COVID-19 Testing performed EDUCATION REVIEWER: Yes COVID-19 Screening: Negative COVID-19 COVID-19 Testing Source: nasal Patient History Past Medical History: see triage record Reviewed Nursing Documentation: PMH: Agreed; PSxH: Agreed Nursing Documentation-PMH Hx Cardiac Problems: No Hx Hypertension: Yes Hx Cancer: Yes - Ovarian Hx Gastrointestinal Problems: No Hx Neurological Problems: No Review of Systems All Other Systems: negative except mentioned in HPI Physical Exam Sp02 EP Interpretation: reviewed, normal General Appearance: alert, moderate distress Head: normocephalic, atraumatic Eyes: bilateral eye PERRL, bilateral eye EOMI Respiratory: lungs clear, no respiratory distress, no retraction, no accessory muscle use Cardiovascular: normal peripheral pulses, no edema, no gallop, no murmur, tachycardia Gastrointestinal: non tender, soft, no guarding, no rebound Musculoskeletal: normal inspection Neurologic: alert, oriented x3 Psychiatric: mood/affect normal Skin: no rash, warm/dry Labs: noted Imaging: reviewed Assessment/Recs # Ovarian cancer - hx of ca in the past 2018, s/p oophorectomy, hysterectomy and is on lymparza daily --> continue outpatient Lymparza --> has f/u with Dr. Smith in [facility] --> ca125 order prn # Thrombocytopenia due to recent chemo and sepsis --> plt count 87 --> abx started --> ivf --> dic panel # Coagulopathy due to Sepsis --> vit k prn # Fever --> tylenol prn, cooling measures, ice packs # Dehydration --> on ivfs # ESBL (extended spectrum beta-lactamase) producing bacteria infection with Pyelonephritis --> abx per id # Dvt ppx scds Appreciate consultation and dw Rn Dequan Mtz MD Oct 20, 2020 06:49
--- NOTE | 2020-10-20 07:15 | NUR ---
NURSE NOTES:Handoff received from GABRIEL Villalobos. Patient received awake and alert and able to make needs known, patient is on room air, with no signs of distress noted, saturating between 95-100%, denies pain at this time. Patient is placed on isolation precautions for PUI COVID. Bed in the low and locked position, call light within reach, bed alarm on. Patient has L and R AC IV sites both clean dry and intact with RAC running NS@75ML/HR. No skin issues noted at this time. Patient has Active cooling measures in place. will follow plan of care.
--- NOTE | 2020-10-20 07:19 | NUR ---
NURSE HAND-OFF REPORT: Important Events on Shift: Pt febrile throughout shift, given Tylenol x2, minimally effective. Michael added to case, notified of febrile status, no new orders. Patient Status: FC Diet: reg Pending Orders: none Pending Results/Labs: BNP, CRP, CMP, lipid panel, mag., phos, uric acid Pending MD notification: none Latest Vital Signs: Temperature 100.3 , Pulse 103 , B/P 103 /65 , Respiratory Rate 22 , O2 SAT 97 , Room Air, O2 Flow Rate . Vital Sign Comment: EKG Rhythm: Sinus Rhythm Rhythm change?: N MD Notified?: - MD Response: Latest Cruz Fall Score: 35 Fall Risk: Medium Risk Safety Measures: Call light Within Reach, Bed Alarm Zone 1, Side Rails Side Rails x3, Bed position Low and Locked. Fall Precautions: YES Yellow Socks Yellow Gown Door Sign Patient Fall Education YES Report given to HALIMA Hirsch RN
[2020-10-20 08:00] VITALS: BP 130/82
[2020-10-20] MEDS: Diclofenac 1% Gel 100gm TOPIC SCH ×3 (09:00→17:44)
--- NOTE | 2020-10-20 09:22 | Nephrology Progress Note ---
Assessment/Plan Plan #ROMAIN likely pre-renal azotemia - r/o early ATN- in the setting of sepsis due to pyelo #Pyelonephritis #sepsis due to pyelo #h/o ovarian cancer - IVF - check urine chem - antibiotics - renal US - amlodipine 5mg daily - monitor renal function and electrolyte Time spent 65 min Subjective ROS Limited/Unobtainable: No Constitutional: Reports: weakness Subjective K 5.[address] abd: Impression: Perinephric fat stranding and mild right hydronephrosis/hydroureter without evidence of downstream obstructive lesion. Findings suggest nephritis/pyelitis/ureteritis. Correlate with clinical and laboratory findings Limited assessment of the GI tract, due to lack of enteric contrast administration 13 mm subpleural left lung parenchymal opacity. Probably a focus of atelectasis or consolidation, but follow-up CT imaging should be considered to confirm resolution and exclude underlying mass lesion Colonic diverticulosis. No evidence of acute diverticulitis Fatty liver Evidence of prior hysterectomy and bilateral nephrectomy and probably for retroperitoneal node dissection Central venous catheter is incidentally noted Objective Objective Last 24 Hour Vital Signs Date Time Temp Pulse Resp B/P (MAP) Pulse Ox O2 Delivery O2 Flow Rate FiO2 10/20/20 08:00 101.2 96 18 130/82 (98) 96 10/20/20 05:41 100.3 10/20/20 04:00 95 10/20/20 04:00 99.6 103 22 103/65 (78) 97 10/20/20 00:00 109 10/20/20 00:00 98.6 104 20 129/79 (96) 98 10/19/20 21:45 98.5 10/19/20 21:00 Room Air 10/19/20 20:00 102.0 107 25 117/82 (94) 95 10/19/20 20:00 107 10/19/20 17:49 101.7 10/19/20 16:30 Room Air 10/19/20 16:00 98 10/19/20 15:27 98.6 98 24 135/87 98 Room Air 10/19/20 15:26 98.6 10/19/20 14:55 98.6 98 24 135/87 98 Room Air 10/19/20 14:54 98.6 24 152/79 98 Room Air 10/19/20 12:45 121 24 Room Air 10/19/20 12:35 100.8 120 22 152/79 (103) 98 Room Air Intake and Output 10/19/20 10/20/20 19:00 07:00 Intake Total 120 ml 3 ml Output Total 6650 ml Balance 120 ml -6647 ml Intake Oral 120 ml Other 3 ml Output Urine Total 6650 ml Laboratory Tests 10/19/20 12:53: White Blood Count 8.9, Red Blood Count 4.00L, Hemoglobin 12.2, Hematocrit 39.8, Mean Corpuscular Volume 100H, Mean Corpuscular Hemoglobin 30.5, Mean Corpuscular Hemoglobin Concent 30.7L, Red Cell Distribution Width 13.8, Platelet Count 87L, Mean Platelet Volume 14.0H, Neutrophils (%) (Auto) , Lymphocytes (%) (Auto) , Monocytes (%) (Auto) , Eosinophils (%) (Auto) , Basophils (%) (Auto) , Different ial Total Cells Counted 100, Neutrophils % (Manual) 86H, Lymphocytes % (Manual) 6L, Monocytes % (Manual) 4, Eosinophils % (Manual) 1, Basophils % (Manual) 0, Band Neutrophils 3, Platelet Estimate DecreasedL, Platelet Morphology , Giant Platelets Rare, Macrocytosis 1+, Prothrombin Time 10.5, Prothromb Time International Ratio 0.9, Activated Partial Thromboplast Time 34H, Sodium Level 140, Potassium Level 5.2H, Chloride Level 106, Carbon Dioxide Level 23, Anion Gap 11, Blood Urea Nitrogen 44H, Creatinine 3.4H, Estimat Glomerular Filtration Rate 14.2, Glucose Level 186H, Lactic Acid Level 1.60, Calcium Level 8.7, Phosphorus Level 3.1, Magnesium Level 2.5H, Total Bilirubin 0.8, Aspartate Amino Transf (AST/SGOT) 36, Alanine Aminotransferase (ALT/SGPT) 159H, Alkaline Phosphatase 157H, Total Creatine Kinase 12L, Creatine Kinase MB < 0.5, Creatine Kinase MB Relative Index 4.1, Troponin I 0.000, Pro-B-Type Natriuretic Peptide 1317H, Total Protein 7.0, Albumin 2.0L, Globulin 5.0, Albumin/Globulin Ratio 0.4L, Lipase 91 10/19/20 14:45: Urine Color Yellow, Urine Appearance Slightly cloudy, Urine pH 5, Urine Specific [place] 1.010, Urine Protein 3+H, Urine Glucose (UA) Negative, Urine Ketones Negative, Urine Blood 5+H, Urine Nitrite Negative, Urine Bilirubin Negative, Urine Urobilinogen Normal, Urine Leukocyte Esterase 1+H, Urine RBC 40-60H, Urine WBC 30-40H, Urine Squamous Epithelial Cells Few, Urine Bacteria ModerateH 10/19/20 16:59: POC Whole Blood Glucose 145H 10/19/20 20:45: POC Whole Blood Glucose 140H 10/20/20 05:26: POC Whole Blood Glucose 122H Height (Feet): 5 Height (Inches): 1.00 Weight (Pounds): 207 Tejinder Mojica M.D. Oct 20, 2020 09:22
[2020-10-20 09:36] LABS: HEMATOCRIT 33.6 % (37.0-47.0); HEMOGLOBIN 10.6 G/DL (12.0-16.0); MEAN CORPUSCULAR VOLUME 99 FL (80-99); PLATELET COUNT 84 K/UL (150-450); RED CELL DISTRIBUTION WIDTH 14.1 % (11.6-14.8); WHITE BLOOD COUNT 4.7 K/UL (4.8-10.8)
[2020-10-20 10:12] LABS: PHOSPHORUS 4.2 MG/DL (2.5-4.9)
[2020-10-20 10:20] LABS: % IRON SATURATION 7 % (15-50); IRON 12 ug/dL (50-175); TOTAL IRON BINDING CAPACITY 163 ug/dL (250-450)
[2020-10-20 10:23] LABS: CALCIUM 8.4 MG/DL (8.5-10.1); CREATININE 2.5 MG/DL (0.55-1.30); POTASSIUM 4.1 MMOL/L (3.5-5.1)
--- NOTE | 2020-10-20 10:36 | NUR ---
NURSE NOTES:Voltaren gel non-administered as gel cannot be located, pharmacy stated that they will get another tube for tomorrow but that was the last tube pharmacy has. Checked patient room and med room, cannot locate anywhere.
--- NOTE | 2020-10-20 11:06 | NUR ---
CASE MANAGEMENT:REVIEW 50 YR OLD FEMALE PRESENTED TO ER CC: WEAK,N/V, FEVER PMH: OVARIAN CANCER ON CHEMO SI: SEPSIS. PYELONEPHRITIS 100.8 120 22 152/79 98% ON RA PLT-87 BUN+45 CR+3.5 IS: IV VANCOMYCIN X1 1L NS BOLUS X2 IV CEFEPIME X1 TYLENOL PO CT ABD/PELVIS CXR NOVEL COVID URINE REFLEX : TO TELEMETRY DCP; FROM HOME PLAN: RENAL US
--- NOTE | 2020-10-20 11:30 | Pulmonology Progress Note ---
Subjective ROS Limited/Unobtainable: No Constitutional: Reports: no symptoms, fever, other - Ahnq=945.0 HEENT: Repors: no symptoms Respiratory: Reports: no symptoms Cardiovascular: Reports: no symptoms Gastrointestinal/Abdominal: Reports: no symptoms Genitourinary: Reports: dysuria Allergies: Coded Allergies: No Known Allergies (Unverified , 06/29/16) Objective Last 24 Hour Vital Signs Date Time Temp Pulse Resp B/P (MAP) Pulse Ox O2 Delivery O2 Flow Rate FiO2 10/20/20 09:46 96 130/82 10/20/20 09:00 Room Air 10/20/20 08:00 95 10/20/20 08:00 101.2 96 18 130/82 (98) 96 10/20/20 05:41 100.3 10/20/20 04:00 95 10/20/20 04:00 99.6 103 22 103/65 (78) 97 10/20/20 00:00 109 10/20/20 00:00 98.6 104 20 129/79 (96) 98 10/19/20 21:45 98.5 10/19/20 21:00 Room Air 10/19/20 20:00 102.0 107 25 117/82 (94) 95 10/19/20 20:00 107 10/19/20 17:49 101.7 10/19/20 16:30 Room Air 10/19/20 16:00 98 10/19/20 15:27 98.6 98 24 135/87 98 Room Air 10/19/20 15:26 98.6 10/19/20 14:55 98.6 98 24 135/87 98 Room Air 10/19/20 14:54 98.6 24 152/79 98 Room Air 10/19/20 12:45 121 24 Room Air 10/19/20 12:35 100.8 120 22 152/79 (103) 98 Room Air Intake and Output 10/19/20 10/20/20 18:59 06:59 Intake Total 120 ml 3 ml Output Total 6650 ml Balance 120 ml -6647 ml Intake Oral 120 ml Other 3 ml Output Urine Total 6650 ml General Appearance: no acute distress HEENT: atraumatic Respiratory: lungs clear Cardiovascular: normal rate Laboratory Tests 10/19/20 12:53: White Blood Count 8.9, Red Blood Count 4.00L, Hemoglobin 12.2, Hematocrit 39.8, Mean Corpuscular Volume 100H, Mean Corpuscular Hemoglobin 30.5, Mean Corpuscular Hemoglobin Concent 30.7L, Red Cell Distribution Width 13.8, Platelet Count 87L, Mean Platelet Volume 14.0H, Neutrophils (%) (Auto) , Lymphocytes (%) (Auto) , Monocytes (%) (Auto) , Eosinophils (%) (Auto) , Basophils (%) (Auto) , Differential Total Cells Counted 100, Neutrophils % (Manual) 86H, Lymphocytes % (Manual) 6L, Monocytes % (Manual) 4, Eosinophils % (Manual) 1, Basophils % (Manual) 0, Band Neutrophils 3, Platelet Estimate DecreasedL, Platelet Morp hology , Giant Platelets Rare, Macrocytosis 1+, Prothrombin Time 10.5, Prothromb Time International Ratio 0.9, Activated Partial Thromboplast Time 34H, Sodium Level 140, Potassium Level 5.2H, Chloride Level 106, Carbon Dioxide Level 23, Anion Gap 11, Blood Urea Nitrogen 44H, Creatinine 3.4H, Estimat Glomerular Filtration Rate 14.2, Glucose Level 186H, Lactic Acid Level 1.60, Calcium Level 8.7, Phosphorus Level 3.1, Magnesium Level 2.5H, Total Bilirubin 0.8, Aspartate Amino Transf (AST/SGOT) 36, Alanine Aminotransferase (ALT/SGPT) 159H, Alkaline Phosphatase 157H, Total Creatine Kinase 12L, Creatine Kinase MB < 0.5, Creatine Kinase MB Relative Index 4.1, Troponin I 0.000, Pro-B-Type Natriuretic Peptide 1317H, Total Protein 7.0, Albumin 2.0L, Globulin 5.0, Albumin/Globulin Ratio 0.4L, Lipase 91 10/19/20 14:45: Urine Color Yellow, Urine Appearance Slightly cloudy, Urine pH 5, Urine Specific [place] 1.010, Urine Protein 3+H, Urine Glucose (UA) Negative, Urine Ketones Negative, Urine Blood 5+H, Urine Nitrite Negative, Urine Bilirubin Negative, Urine Urobilinogen Normal, Urine Leukocyte Esterase 1+H, Urine RBC 40-60H, Urine WBC 30-40H, Urine Squamous Epithelial Cells Few, Urine Bacteria ModerateH 10/19/20 16:59: POC Whole Blood Glucose 145H 10/19/20 20:45: POC Whole Blood Glucose 140H 10/20/20 05:26: POC Whole Blood Glucose 122H 10/20/20 08:35: White Blood Count 4.7L, Red Blood Count 3.40L, Hemoglobin 10.6L, Hematocrit 33.6L, Mean Corpuscular Volume 99, Mean Corpuscular Hemoglobin 31.3H, Mean Corpuscular Hemoglobin Concent 31.7L, Red Cell Distribution Width 14.1, Platelet Count 84L, Mean Platelet Volume 10.4H, Neutrophils (%) (Auto) , Lymphocytes (%) (Auto) , Monocytes (%) (Auto) , Eosinophils (%) (Auto) , Basophils (%) (Auto) , Differential Total Cells Counted 100, Neutrophils % (Manual) 82H, Lymphocytes % (Manual) 13L, Monocytes % (Manual) 3, Eosinophils % (Manual) 1, Basophils % (Manual) 0, Band Neutrophils 1, Platelet Estimate DecreasedL, Platelet Morphology Normal, Anisocytosis 1+, Sodium Level 144, Potassium Level 4.1, Chloride Level 110H, Carbon Dioxide Level 19L, Anion Gap 15, Blood Urea Nitrogen 35H, Creatinine 2.5H, Estimat Glomerular Filtration Rate 20.3, Glucose Level 116H, Hemoglobin A1c 7.4H, Calcium Level 8.4L, Calcium (Send out) [Pending], Phosphorus Level 4.2, Magnesium Level 2.3, Iron Level 12L, Total Iron Binding Capacity 163L, Percent Iron Saturation 7L, Unsaturated Iron Binding 151, Ferritin 366, CA 125 Antigen [Pending], Vitamin D 25-Hydroxy [Pending], 25-Hy droxy Vitamin D2 [Pending], 25-Hydroxy Vitamin D3 [Pending], Parathyroid Hormone (Intact) [Pending] Current Medications Medications (Trade) Dose Ordered Sig/Abhay Route PRN Reason Start Time Stop Time Status Last Admin Dose Admin Acetaminophen (Tylenol) 650 mg Q6H PRN ORAL Mild Pain (Pain Scale 1-3) 10/19/20 16:15 11/18/20 16:14 10/19/20 17:19 Acetaminophen (Tylenol) 650 mg Q6H PRN ORAL Temp >100.5 10/19/20 16:15 11/18/20 16:14 10/20/20 05:11 Amlodipine Besylate (Norvasc) 5 mg DAILY ORAL 10/20/20 09:00 11/19/20 08:59 10/20/20 09:46 Dextrose (Dextrose 50%) 25 ml Q30M PRN IV Hypoglycemia 10/19/20 15:15 01/17/21 15:14 Dextrose (Dextrose 50%) 50 ml Q30M PRN IV Hypoglycemia 10/19/20 15:15 01/17/21 15:14 Diclofenac Sodium (Voltaren gel) 1 applic TID TOPIC 10/19/20 21:00 01/17/21 20:59 10/19/20 21:16 Insulin Aspart (NovoLOG) BEFORE MEALS AND HS SUBQ 10/19/20 17:00 01/17/21 16:59 10/19/20 20:48 Sodium Chloride 1,000 ml @ 75 mls/hr [id number] IV 10/19/20 18:45 11/18/20 18:44 Assessment/Plan Assessment/Plan 1. Dysuria -CT shows signs of ascending UTI -We will collect urine for UA with urine culture -Given her history of ESBL UTI, will empirically treat -We will consult ID - ESBL (extended spectrum beta-lactamase) producing bacteria infection with Pyelonephritis 2. ROMAIN on CKD -We will continue IV fluids -We will consult nephro 3. Diabetes mellitus with Hyperglycemia -We will start insulin sliding scale - A1c 7.4 4. Thrombocytopenia, secondary to chemo and sepsis -We will consult heme-onc - DIC panel 5. History of ovarian cancer, on chemo -We will consult heme-onc - hx of CA in 2018, s/p oophorectomy, hysterectomy and is on lymparza daily - continue outpatient Lymparza 6. Elevated ALT -Monitor ALT 7. Elevated BNP 8. Hypertension 9. Sepsis with tachycardia and fever - ID has been consulted DVT ppx - Venous duplex US ordered; SCD if negative COVID-19 PUI The care for this patient was discussed with my supervising physician. Time spent for this case was approximately 31 minutes. Mihai Greene Oct 20, 2020 11:30
[2020-10-20 12:00] VITALS: BP 133/83
--- NOTE | 2020-10-20 12:10 | NUR ---
NURSE NOTES:LJ Davenport rounded on patient, informed him that the Voltaren gel for the patient cannot be located and that pharmacy stated they will replace tomorrow.
--- NOTE | 2020-10-20 12:19 | Diagnostic Imaging Report ---
Indication: Acute renal failure Technique: Grayscale and duplex images of the kidneys, retroperitoneum, and bladder were obtained. Comparison: No comparison sonogram. Reference made to abdomen pelvis CT scan dated 10/19/2020 Findings: Right kidney measures 11.7 cm in length. Left kidney measures 12.4 cm in length. Both kidneys demonstrate slightly increased echogenicity. There is mild prominence to the right renal pelvis and calyces but no lito hydronephrosis. No focal abnormality. Normal inferior vena cava. Bladder is normal. Impression: Mildly increased renal echogenicity, likely medical renal disease Negative for hydronephrosis Increased hepatic echogenicity indicating fatty change, also demonstrated on recent CT scan.
--- NOTE | 2020-10-20 12:34 | NUR ---
BREAKER TENDER NOTES SPOKE WITH MYA FROM [facility]. CLINICALS FAXED. PT WILL POSSIBLE TRANSFER INTO NETWORK. WILL FOLLOW UP WITH DCP.
--- NOTE | 2020-10-20 12:39 | NUR ---
INSURANCE CLINICALS/REVIEW FAXED TO Tyra agarwal#[phone] fax# [phone]
--- NOTE | 2020-10-20 13:04 | Diagnostic Imaging Report ---
Indication: Leg pain, shortness of breath Technique: Grayscale and duplex images of the bilateral lower extremity veins Comparison: 10/17/2020 study of the left leg only Findings: Bilaterally, grayscale and duplex images demonstrate no evidence of intraluminal thrombus. Normal phasic Doppler waveforms, demonstrating normal augmentation response and no evidence of valvular insufficiency. Greater saphenous vein(s) and tibial veins are patent. Normal compressibility. No significant change Impression: Negative for evidence of lower extremity deep venous thrombosis bilaterally
--- NOTE | 2020-10-20 13:18 | NUR ---
NURSE NOTES:patient's son arrived downstairs and stated that he spoke to Sara, who informed him that his mother was being transferred to another hospital as he was informed that we did not have a bed at our facility. I spoke to the son and explained to him that there is no order for a discharge or transfer to another facility ordered by any of his mothers physicians. Son left the hospital agreeing that his mother will remain here for treatment.
[2020-10-20 16:00] VITALS: BP 154/95
[2020-10-20] MEDS ORDERED: Vancomycin 1.5gm/300ml Premix IVPB ONE (16:00)
--- NOTE | 2020-10-20 17:14 | Consultation ---
DATE OF CONSULTATION: 10/20/2020 INFECTIOUS DISEASE CONSULTATION This consult is for coverage of Dr. Nava. CONSULTING PHYSICIAN: Miguelangel Orozco MD PRIMARY ATTENDING PHYSICIAN: Huey Guzman MD REASON FOR CONSULTATION: Gram-negative sepsis and pyelonephritis. HISTORY OF PRESENT ILLNESS: The patient is a 50-year-old female admitted yesterday from home complaining of fever, chills, body ache, weakness, right flank pain. The patient had history of ovarian cancer on chemotherapy, the last dose of chemo was three days before admission. The COVID test was negative one week before the day of admission. PAST MEDICAL HISTORY: Morbid obesity, ovarian cancer on chemotherapy, anemia, chronic kidney disease. ALLERGIES: No known drug allergies. MEDICATIONS: Getting vancomycin, Zosyn, diclofenac, topical sodium chloride, insulin. SOCIAL HISTORY: No history of alcohol, drug abuse, or smoking. . REVIEW OF SYSTEMS: Has headache, fever. No coughing. No nausea. No vomiting. No chest pain. Has right flank pain. PHYSICAL EXAMINATION: VITAL SIGNS: Temperature is 100.9, pulse 91, blood pressure 133/83. GENERAL APPEARANCE: Obese. No acute distress. HEAD AND NECK: Moist mucous membranes. HEART: Normal rate. LUNGS: Clear. ABDOMEN: Soft. Mild right CVA tenderness. EXTREMITIES: No edema. NEUROLOGIC: Awake, alert, responsive. LABORATORY AND DIAGNOSTIC DATA: WBC 4.7, hemoglobin 10.6, hematocrit 33.6, platelet is 84. Sodium 144, potassium 4.1, chloride 110, bicarb 19, BUN 35, creatinine 2.5, glucose 116. UA showed rbc's 40 to 60, wbc's 30 to 40. Chest x-ray, hypoventilatory with right basilar atelectasis. CT scan of the abdomen and pelvis showed fatty liver, perinephric fat stranding in the right side with hydronephrosis, hydroureter likely nephritis, pyelitis, colonic diverticulosis without diverticulitis, evidence of prior hysterectomy, bilateral nephrectomy, probably retroperitoneal node dissection. Renal ultrasound, mild increased renal echogenicity. Blood culture growing gram-negative rods. Urine culture so far is negative. IMPRESSION: Sepsis with gram-negative secondanrt to right pyelonephritis, immunocompromised because of chemotherapy, has ovarian cancer, anemia, thrombocytopenia, chronic kidney disease, fatty liver, colonic diverticulosis, morbid obesity, diabetes mellitus. RECOMMENDATION: Continue with Zosyn. Discontinue vancomycin. We will follow up the cultures. At the end of my exam, I thank Dr. Guzman for involving me in the care of this patient. Miguelangel Orozco M.D. DR: Sung JOB#: [id number] CC: LUCAS
--- NOTE | 2020-10-20 17:40 | NUR ---
NURSE NOTES:Voltaren gel found in patient room.
[2020-10-20] MEDS: Piperacillin/Tazobactam 3.375 GM in NS 110 ML IVPB SCH ×2 (17:43→21:11)
--- NOTE | 2020-10-20 17:49 | NUR ---
NURSE NOTES:Patient complaining of being cold and requesting extra blankets. Checked patient temperature and it is 101.7 removed extra blankets and explained to that we need to bring her fever down, will administer Tylenol.
--- NOTE | 2020-10-20 18:28 | NUR ---
NURSE NOTES:Active cooling measures in place as patient fever increased.
--- NOTE | 2020-10-20 19:12 | NUR ---
NURSE NOTES: Received report from GABRIEL Elizondo. Pt is A.O x4 and verbally responsive in Cymra[place] with simple [place]. Pt has no SOB or acute distress. No pain noted. Pt is ambulatory and has bedside commode. Pt is continent of both bowel and bladder. Bed in lowest position with side rails x2 and locked in place. Call light within reach.Was endorsed pt had a fever of 100.[address] measures [address]. Checked temp again and still at 100.2. Will replace ice packs and see when I can give Tylenol again. Will continue to monitor.
--- NOTE | 2020-10-20 19:44 | NUR ---
NURSE HAND-OFF REPORT: Important Events on Shift:Patient had fever, Tylenol and active cooling measures in place. Patient Status: stable Diet: Regular Pending Orders: Pending Results/Labs: Pending MD notification: Latest Vital Signs: Temperature 102.8 , Pulse 88 , B/P 154 /95 , Respiratory Rate 18 , O2 SAT 95 , Room Air, O2 Flow Rate . Vital Sign Comment: EKG Rhythm: Sinus Rhythm Rhythm change?: N MD Notified?: - MD Response: Latest Cruz Fall Score: 20 Fall Risk: Low Risk Safety Measures: Call light Within Reach, Bed Alarm Zone 1, Side Rails Side Rails x3, Bed position Low and Locked. Fall Precautions: Yellow Socks Yellow Gown Door Sign Patient Fall Education Report given to Barbara Roque RN.
[2020-10-20 20:00] VITALS: BP 152/86
[2020-10-21] VITALS: BP 141/75
--- NOTE | 2020-10-21 02:24 | Cardiology Report ---
APPROVED REPORT EKG Measurement Heart [id number] <Conclusion> Sinus tachycardia Otherwise normal ECG
[2020-10-21 04:00] VITALS: BP 125/79
[2020-10-21 04:23] LABS: HEMATOCRIT 34.9 % (37.0-47.0); HEMOGLOBIN 11.1 G/DL (12.0-16.0); MEAN CORPUSCULAR VOLUME 97 FL (80-99); PLATELET COUNT 90 K/UL (150-450); RED BLOOD COUNT 3.61 M/UL (4.20-5.40); RED CELL DISTRIBUTION WIDTH 13.9 % (11.6-14.8); WHITE BLOOD COUNT 4.1 K/UL (4.8-10.8)
[2020-10-21 04:33] LABS: CALCIUM 8.7 MG/DL (8.5-10.1); CREATININE 2.5 MG/DL (0.55-1.30)
[2020-10-21] MEDS: NovoLOG Insulin Flexpen SUBQ SCH ×2 (05:47→11:30)
--- NOTE | 2020-10-21 06:37 | Hematology/Onc Progress Note ---
Assessment/Plan Assessment/Plan Assessment/Recs # Ovarian cancer - hx of ca in the past 2018, s/p oophorectomy, hysterectomy and is on lymparza daily --> continue outpatient Lymparza --> has f/u with Dr. Smith in [facility] --> ca125 order prn --> imaging has been reviewed--> Evidence of prior hysterectomy and bilateral nephrectomy and probably for retroperitoneal node dissection # Thrombocytopenia due to recent chemo and sepsis --> plt count 87->90 --> abx started --> ivf --> dic panel # Coagulopathy due to Sepsis --> vit k prn # Fever --> tylenol prn, cooling measures, ice packs # Dehydration --> on ivfs # ESBL (extended spectrum beta-lactamase) producing bacteria infection with Pyelonephritis --> abx per id # Dvt ppx scds Appreciate consultation and dw Rn Subjective Constitutional: Denies: no symptoms, chills, fever, malaise, weakness, other HEENT: Denies: no symptoms, eye pain, blurred vision, tearing, double vision, ear pain, ear discharge, nose pain, nose congestion, throat pain, throat swelling, mouth pain, mouth swelling, other Cardiovascular: Denies: no symptoms, chest pain, edema, irregular heart rate, lightheadedness, palpitations, syncope, other Genitourinary: Denies: no symptoms, burning, discharge, frequency, flank pain, hematuria, incontinence, pain, urgency, other Neurologic/Psychiatric: Denies: no symptoms, anxiety, depressed, emotional problems, headache, numbness, paresthesia, pre-existing deficit, seizure, tingling, tremors, weakness, other Endocrine: Denies: no symptoms, excessive sweating, flushing, intolerance to cold, intolerance to heat, increased hunger, increased thirst, increased urine, unexplained weight gain, unexplained weight loss, other Allergies: Coded Allergies: No Known Allergies (Unverified , 06/29/16) Subjective 2/3 with fever o/n, tylenol was given, meds reviewed, labs noted Objective Objective Current Medications Medications (Trade) Dose Ordered Sig/Abhay Route PRN Reason Start Time Stop Time Status Last Admin Dose Admin Acetaminophen (Tylenol) 650 mg Q6H PRN ORAL Temp >100.5 10/19/20 16:15 11/18/20 16:14 10/20/20 17:55 Acetaminophen (Tylenol) 650 mg Q6H PRN ORAL Mild Pain (Pain Scale 1-3) 10/19/20 16:15 11/18/20 16:14 10/21/20 01:14 Amlodipine Besylate (Norvasc) 5 mg DAILY ORAL 10/20/20 09:00 11/19/20 08:59 10/20/20 09:46 Dextrose (Dextrose 50%) 25 ml Q30M PRN IV Hypoglycemia 10/19/20 15:15 01/17/21 15:14 Dextrose (Dextrose 50%) 50 ml Q30M PRN IV Hypoglycemia 10/19/20 15:15 01/17/21 15:14 Diclofenac Sodium (Voltaren gel) 1 applic TID TOPIC 10/19/20 21:00 01/17/21 20:59 10/20/20 17:44 Insulin Aspart (NovoLOG) BEFORE MEALS AND HS SUBQ 10/19/20 17:00 01/17/21 16:59 10/20/20 20:23 Piperacillin Sod/ Tazobactam Sod 3.375 gm/Sodium Chloride 110 ml @ 27.5 mls/hr EVERY 8 HOURS IVPB 10/20/20 16:00 10/25/20 15:59 10/20/20 21:11 Sodium Chloride 1,000 ml @ 75 mls/hr [id number] IV 10/19/20 18:45 11/18/20 18:44 10/20/20 21:11 [facility] DA[facility] PRN MISC Per rx protocol 10/20/20 14:30 11/19/20 14:29 Last 24 Hour Vital Signs Date Time Temp Pulse Resp B/P (MAP) Pulse Ox O2 Delivery O2 Flow Rate FiO2 10/21/20 04:00 84 10/21/20 04:00 97.8 96 20 125/79 (94) 98 10/21/20 00:00 100.3 90 21 141/75 (97) 97 10/21/20 00:00 87 10/20/20 21:00 Room Air 10/20/20 20:00 100.2 96 20 152/86 (108) 96 10/20/20 20:00 97 10/20/20 18:28 102.8 10/20/20 16:00 88 10/20/20 16:00 97.8 85 18 154/95 (114) 95 10/20/20 12:00 100.9 91 18 133/83 (100) 98 10/20/20 12:00 89 10/20/20 09:46 96 130/82 10/20/20 09:00 Room Air 10/20/20 08:00 95 10/20/20 08:00 101.2 96 18 130/82 (98) 96 10/20/20 05:41 100.3 10/20/20 04:00 95 10/20/20 04:00 99.6 103 22 103/65 (78) 97 10/20/20 00:00 109 10/20/20 00:00 98.6 104 20 129/79 (96) 98 10/19/20 21:45 98.5 10/19/20 21:00 Room Air 10/19/20 20:00 102.0 107 25 117/82 (94) 95 10/19/20 20:00 107 10/19/20 17:49 101.7 10/19/20 16:30 Room Air 10/19/20 16:00 98 10/19/20 15:27 98.6 98 24 135/87 98 Room Air 10/19/20 15:26 98.6 10/19/20 14:55 98.6 98 24 135/87 98 Room Air 10/19/20 14:54 98.6 24 152/79 98 Room Air 10/19/20 12:45 121 24 Room Air 10/19/20 12:35 100.8 120 22 152/79 (103) 98 Room Air Intake and Output 10/20/20 10/21/20 18:59 06:59 Intake Total 540 ml 892 ml Output Total 600 ml 1401 ml Balance -60 ml -509 ml Intake Oral 540 ml 890 ml Other 2 ml Output Urine Total 600 ml 1200 ml Stool Total 200 ml Other 1 ml # Voids 5 # Bowel Movements 1 1 Labs Test 10/19/20 12:53 10/19/20 14:45 10/19/20 16:59 10/19/20 20:45 White Blood Count 8.9 K/UL (4.8-10.8) Red Blood Count 4.00 M/UL (4.20-5.40) Hemoglobin 12.2 G/DL (12.0-16.0) Hematocrit 39.8 % (37.0-47.0) Mean Corpuscular Volume 100 FL (80-99) Mean Corpuscular Hemoglobin 30.5 PG (27.0-31.0) Mean Corpuscular Hemoglobin Concent 30.7 G/DL (32.0-36.0) Red Cell Distribution Width 13.8 % (11.6-14.8) Platelet Count 87 K/UL (150-450) Mean Platelet Volume 14.0 FL (6.5-10.1) Neutrophils (%) (Auto) % (45.0-75.0) Lymphocytes (%) (Auto) % (20.0-45.0) Monocytes (%) (Auto) % (1.0-10.0) Eosinophils (%) (Auto) % (0.0-3.0) Basophils (%) (Auto) % (0.0-2.0) Differential Total Cells Counted 100 Neutrophils % (Manual) 86 % (45-75) Lymphocytes % (Manual) 6 % (20-45) Monocytes % (Manual) 4 % (1-10) Eosinophils % (Manual) 1 % (0-3) Basophils % (Manual) 0 % (0-2) Band Neutrophils 3 % (0-8) Platelet Estimate Decreased Platelet Morphology Giant Platelets Rare Macrocytosis 1+ Prothrombin Time 10.5 SEC (9.30-11.50) Prothromb Time International Ratio 0.9 (0.9-1.1) Activated Partial Thromboplast Time 34 SEC (23-33) Sodium Level 140 MMOL/L (136-145) Potassium Level 5.2 MMOL/L (3.5-5.1) Chloride Level 106 MMOL/L (98-107) Carbon Dioxide Level 23 MMOL/L (21-32) Anion Gap 11 mmol/L (5-15) Blood Urea Nitrogen 44 mg/dL (7-18) Creatinine 3.4 MG/DL (0.55-1.30) Estimat Glomerular Filtration Rate 14.2 mL/min (>60) Glucose Level 186 MG/DL (74-106) Lactic Acid Level 1.60 mmol/L (0.4-2.0) Calcium Level 8.7 MG/DL (8.5-10.1) Phosphorus Level 3.1 MG/DL (2.5-4.9) Magnesium Level 2.5 MG/DL (1.8-2.4) Total Bilirubin 0.8 MG/DL (0.2-1.0) Aspartate Amino Transf (AST/SGOT) 36 U/L (15-37) Alanine Aminotransferase (ALT/SGPT) 159 U/L (12-78) Alkaline Phosphatase 157 U/L (46-116) Total Creatine Kinase 12 U/L (26-308) Creatine Kinase MB < 0.5 NG/ML (0.0-3.6) Creatine Kinase MB Relative Index 4.1 Troponin I 0.000 ng/mL (0.000-0.056) Pro-B-Type Natriuretic Peptide 1317 pg/mL (0-125) Total Protein 7.0 G/DL (6.4-8.2) Albumin 2.0 G/DL (3.4-5.0) Globulin 5.0 g/dL Albumin/Globulin Ratio 0.4 (1.0-2.7) Lipase 91 U/L (73-393) Urine Color Yellow Urine Appearance Slightly cloudy Urine pH 5 (4.5-8.0) Urine Specific [place] 1.010 (1.005-1.035) Urine Protein 3+ (NEGATIVE) Urine Glucose (UA) Negative (NEGATIVE) Urine Ketones Negative (NEGATIVE) Urine Blood 5+ (NEGATIVE) Urine Nitrite Negative (NEGATIVE) Urine Bilirubin Negative (NEGATIVE) Urine Urobilinogen Normal MG/DL (0.0-1.0) Urine Leukocyte Esterase 1+ (NEGATIVE) Urine RBC 40-60 /HPF (0 - 2) Urine WBC 30-40 /HPF (0 - 2) Urine Squamous Epithelial Cells Few /LPF (NONE/OCC) Urine Bacteria Moderate /HPF (NONE) POC Whole Blood Glucose 145 MG/DL (74-106) 140 MG/DL (74-106) Test 10/20/20 05:26 10/20/20 08:35 10/20/20 13:35 10/20/20 20:21 POC Whole Blood Glucose 122 MG/DL (74-106) 152 MG/DL (74-106) White Blood Count 4.7 K/UL (4.8-10.8) Red Blood Count 3.40 M/UL (4.20-5.40) Hemoglobin 10.6 G/DL (12.0-16.0) Hematocrit 33.6 % (37.0-47.0) Mean Corpuscular Volume 99 FL (80-99) Mean Corpuscular Hemoglobin 31.3 PG (27.0-31.0) Mean Corpuscular Hemoglobin Concent 31.7 G/DL (32.0-36.0) Red Cell Distribution Width 14.1 % (11.6-14.8) Platelet Count 84 K/UL (150-450) Mean Platelet Volume 10.4 FL (6.5-10.1) Neutrophils (%) (Auto) % (45.0-75.0) Lymphocytes (%) (Auto) % (20.0-45.0) Monocytes (%) (Auto) % (1.0-10.0) Eosinophils (%) (Auto) % (0.0-3.0) Basophils (%) (Auto) % (0.0-2.0) Differential Total Cells Counted 100 Neutrophils % (Manual) 82 % (45-75) Lymphocytes % (Manual) 13 % (20-45) Monocytes % (Manual) 3 % (1-10) Eosinophils % (Manual) 1 % (0-3) Basophils % (Manual) 0 % (0-2) Band Neutrophils 1 % (0-8) Platelet Estimate Decreased Platelet Morphology Normal Anisocytosis 1+ Sodium Level 144 MMOL/L (136-145) Potassium Level 4.1 MMOL/L (3.5-5.1) Chloride Level 110 MMOL/L (98-107) Carbon Dioxide Level 19 MMOL/L (21-32) Anion Gap 15 mmol/L (5-15) Blood Urea Nitrogen 35 mg/dL (7-18) Creatinine 2.5 MG/DL (0.55-1.30) Estimat Glomerular Filtration Rate 20.3 mL/min (>60) Glucose Level 116 MG/DL (74-106) Hemoglobin A1c 7.4 % (4.3-6.0) Calcium Level 8.4 MG/DL (8.5-10.1) Phosphorus Level 4.2 MG/DL (2.5-4.9) Magnesium Level 2.3 MG/DL (1.8-2.4) Iron Level 12 ug/dL (50-175) Total Iron Binding Capacity 163 ug/dL (250-450) Percent Iron Saturation 7 % (15-50) Unsaturated Iron Binding 151 ug/dL (112-346) Ferritin 366 NG/ML (8-388) Urine Random Sodium 102 mmol/L (20-110) Urine Creatinine 48.9 MG/DL (30.0-125.0) Test 10/21/20 04:18 10/21/20 05:17 White Blood Count 4.1 K/UL (4.8-10.8) Red Blood Count 3.61 M/UL (4.20-5.40) Hemoglobin 11.1 G/DL (12.0-16.0) Hematocrit 34.9 % (37.0-47.0) Mean Corpuscular Volume 97 FL (80-99) Mean Corpuscular Hemoglobin 30.8 PG (27.0-31.0) Mean Corpuscular Hemoglobin Concent 31.8 G/DL (32.0-36.0) Red Cell Distribution Width 13.9 % (11.6-14.8) Platelet Count 90 K/UL (150-450) Mean Platelet Volume 9.7 FL (6.5-10.1) Neutrophils (%) (Auto) % (45.0-75.0) Lymphocytes (%) (Auto) % (20.0-45.0) Monocytes (%) (Auto) % (1.0-10.0) Eosinophils (%) (Auto) % (0.0-3.0) Basophils (%) (Auto) % (0.0-2.0) Sodium Level 140 MMOL/L (136-145) Potassium Level 4.0 MMOL/L (3.5-5.1) Chloride Level 107 MMOL/L (98-107) Carbon Dioxide Level 21 MMOL/L (21-32) Anion Gap 12 mmol/L (5-15) Blood Urea Nitrogen 37 mg/dL (7-18) Creatinine 2.5 MG/DL (0.55-1.30) Estimat Glomerular Filtration Rate 20.3 mL/min (>60) Glucose Level 122 MG/DL (74-106) Calcium Level 8.7 MG/DL (8.5-10.1) Random Vancomycin Level 22.1 ug/mL POC Whole Blood Glucose 113 MG/DL (74-106) Height (Feet): 5 Height (Inches): 1.00 Weight (Pounds): 207 Objective Physical Exam Sp02 EP Interpretation: reviewed, normal General Appearance: alert, moderate distress Head: normocephalic, atraumatic Eyes: bilateral eye PERRL, bilateral eye EOMI Respiratory: lungs clear, no respiratory distress, no retraction, no accessory muscle use Cardiovascular: normal peripheral pulses, no edema, no gallop, no murmur, tachycardia Gastrointestinal: non tender, soft, no guarding, no rebound Musculoskeletal: normal inspection Neurologic: alert, oriented x3 Psychiatric: mood/affect normal Skin: no rash, warm/dry Dequan Mtz MD Oct 21, 2020 06:37
--- NOTE | 2020-10-21 06:37 | NUR ---
CASE MANAGEMENT:REVIEW 10/21/20 SI: SEPSIS. PYELONEPHRITIS. AC/CHR 100.3 87 21 141/75 97% ON RA WBC-4.1 H/H-11./34.9 PLT-90 BUN+37 CR+2.5 IS: IV ZOSYN Q8HRS NORVASC PO QD IVF@75/HR SS INSULIN AC+HS : TELEMETRY STATUS DCP: FROM HOME
--- NOTE | 2020-10-21 07:07 | NUR ---
NURSE HAND-OFF REPORT: Important Events on Shift: Fever broke temp back to normal Patient Status: Stable Diet: Regular Pending Orders: Pending Results/Labs: Pending MD notification: Latest Vital Signs: Temperature 97.8 , Pulse 84 , B/P 125 /79 , Respiratory Rate 20 , O2 SAT 98 , Room Air, O2 Flow Rate . Vital Sign Comment: EKG Rhythm: Sinus Rhythm Rhythm change?: N MD Notified?: - MD Response: Latest Cruz Fall Score: 20 Fall Risk: Low Risk Safety Measures: Call light Within Reach, Bed Alarm Zone 1, Side Rails Side Rails x2, Bed position Low and Locked. Fall Precautions: Yellow Socks Yellow Gown Door Sign Patient Fall Education Report given to Mikhail.
--- NOTE | 2020-10-21 07:20 | NUR ---
NURSE NOTES:Handoff received from GABRIEL Roque. Patient received awake and alert and able to make needs known, patient is on room air, with no signs of distress noted, saturating between 95-100%, denies pain at this time. Patient is placed on isolation precautions for PUI COVID. Bed in the low and locked position, call light within reach, bed alarm on. Patient has L and R AC IV sites both clean dry and intact with RAC running NS@75ML/HR. No skin issues noted at this time. Will follow plan of care.
[2020-10-21 08:00] VITALS: BP 147/100
--- NOTE | 2020-10-21 09:10 | Nephrology Progress Note ---
Assessment/Plan Plan #ROMAIN likely pre-renal azotemia - r/o early ATN- in the setting of sepsis due to pyelo #Pyelonephritis #sepsis due to pyelo #h/o ovarian cancer - IVF- ns at 75 cc/hr - antibiotics- on vanco and zosyn monitor vanco level - amlodipine 5mg daily - monitor renal function and electrolyte renal US: Impression: Mildly increased renal echogenicity, likely medical renal disease Negative for hydronephrosis Increased hepatic echogenicity indicating fatty change, also demonstrated on recent CT scan. Time spent 65 min Subjective ROS Limited/Unobtainable: No Constitutional: Reports: weakness HEENT: Denies: no symptoms, eye pain, blurred vision, tearing, double vision, ear pain, ear discharge, nose pain, nose congestion, throat pain, throat swelling, mouth pain, mouth swelling, other Genitourinary: Denies: no symptoms, burning, discharge, frequency, flank pain, hematuria, incontinence, pain, urgency, other Neurologic/Psychiatric: Denies: no symptoms, anxiety, depressed, emotional problems, headache, numbness, paresthesia, pre-existing deficit, seizure, tingling, tremors, weakness, other Subjective K normal Cr down to 2.5 CT abd: Impression: Perinephric fat stranding and mild right hydronephrosis/hydroureter without evidence of downstream obstructive lesion. Findings suggest nephritis/pyelitis/ureteritis. Correlate with clinical and laboratory findings Limited assessment of the GI tract, due to lack of enteric contrast administration 13 mm subpleural left lung parenchymal opacity. Probably a focus of atelectasis or consolidation, but follow-up CT imaging should be considered to confirm resolution and exclude underlying mass lesion Colonic diverticulosis. No evidence of acute diverticulitis Fatty liver Evidence of prior hysterectomy and bilateral nephrectomy and probably for retroperitoneal node dissection Central venous catheter is incidentally noted Objective Objective Last 24 Hour Vital Signs Date Time Temp Pulse Resp B/P (MAP) Pulse Ox O2 Delivery O2 Flow Rate FiO2 10/21/20 04:00 84 10/21/20 04:00 97.8 96 20 125/79 (94) 98 10/21/20 00:00 100.3 90 21 141/75 (97) 97 10/21/20 00:00 87 10/20/20 21:00 Room Air 10/20/20 20:00 100.2 96 20 152/86 (108) 96 10/20/20 20:00 97 10/20/20 18:28 102.8 10/20/20 16:00 88 10/20/20 16:00 97.8 85 18 154/95 (114) 95 10/20/20 12:00 100.9 91 18 133/83 (100) 98 10/20/20 12:00 89 10/20/20 09:46 96 130/82 Intake and Output 10/20/20 10/21/20 19:00 07:00 Intake Total 540 ml 892 ml Output Total 600 ml 1401 ml Balance -60 ml -509 ml Intake Oral 540 ml 890 ml Other 2 ml Output Urine Total 600 ml 1200 ml Stool Total 200 ml Other 1 ml # Voids 5 # Bowel Movements 1 1 Laboratory Tests 10/20/20 13:35: Urine Random Sodium 102, Urine Creatinine 48.9 10/20/20 20:21: POC Whole Blood Glucose 152H 10/21/20 04:18: White Blood Count 4.1L, Red Blood Count 3.61L, Hemoglobin 11.1L, Hematocrit 34.9L, Mean Corpuscular Volume 97, Mean Corpuscular Hemoglobin 30.8, Mean Corpuscular Hemoglobin Concent 31.8L, Red Cell Distribution Width 13.9, Platelet Count 90L, Mean Platelet Volume 9.7, Neutrophils (%) (Auto) , Lymphocytes (%) (Auto) , Monocytes (%) (Auto) , Eosinophils (%) (Auto) , Basophils (%) (Auto) , Sodium Level 140, Potassium Level 4.0, Chloride Level 107, Carbon Dioxide Level 21, Anion Gap 12, Blood Urea Nitrogen 37H, Creatinine 2.5H, Estimat Glomerular Filtration Rate 20.3, Glucose Level 122H, Calcium Level 8.7, Random Vancomycin Level 22.1 10/21/20 05:17: POC Whole Blood Glucose 113H Height (Feet): 5 Height (Inches): 1.00 Weight (Pounds): 207 Tejinder Mojica M.D. Oct 21, 2020 09:10
[2020-10-21] MEDS: Diclofenac 1% Gel 100gm TOPIC SCH ×2 (09:17→13:05)
--- NOTE | 2020-10-21 09:56 | NUR ---
INSURANCE CLINICALS/REVIEW FAXED TO Tyra agarwal#[phone] fax# [phone]
--- NOTE | 2020-10-21 10:32 | NUR ---
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 Called LJ Davenport to notify him of headache and nausea experienced by patient. Ramona stated he will be in to assess the patient shortly.
--- NOTE | 2020-10-21 11:00 | NUR ---
NURSE NOTES:Dr Nava rounded on patient, informed her of negative COVID-19 result, MD stated that isolation precautions can be discontinued at this time.
--- NOTE | 2020-10-21 11:08 | Infectious Diseases Prog Note ---
Assessment/Plan Assessment/Plan antibiotics : vancomycin iv, zosyn A 1. gram negative sepsis 2. pyelonephritis 3. ovarian cancer 4. diabetes mellitus 5. obesity P 1. continue iv vancomycin, zosyn 2. will follow up cultures Subjective Constitutional: Denies: fever, chills Respiratory: Denies: shortness of breath, dry cough Gastrointestinal/Abdominal: Reports: nausea, vomiting; Denies: diarrhea Neurologic: Reports: headache Allergies: Coded Allergies: No Known Allergies (Unverified , 06/29/16) Objective Last 24 Hour Vital Signs Date Time Temp Pulse Resp B/P (MAP) Pulse Ox O2 Delivery O2 Flow Rate FiO2 10/21/20 09:16 85 147/100 10/21/20 09:00 Room Air 10/21/20 08:00 84 10/21/20 08:00 99.1 85 20 147/100 (116) 100 10/21/20 04:00 84 10/21/20 04:00 97.8 96 20 125/79 (94) 98 10/21/20 00:00 100.3 90 21 141/75 (97) 97 10/21/20 00:00 87 10/20/20 21:00 Room Air 10/20/20 20:00 100.2 96 20 152/86 (108) 96 10/20/20 20:00 97 10/20/20 18:28 102.8 10/20/20 16:00 88 10/20/20 16:00 97.8 85 18 154/95 (114) 95 10/20/20 12:00 100.9 91 18 133/83 (100) 98 10/20/20 12:00 89 Height (Feet): 5 Height (Inches): 1.00 Weight (Pounds): 207 Respiratory/Chest: lungs clear Cardiovascular: normal rate, regular rhythm, no gallop/murmur Abdomen: soft, non tender Extremities: no edema Microbiology Date/Time Source Procedure Growth Status 10/19/20 15:25 Nasopharynx Coronavirus COVID-19 PCR ([facility]) - Final Complete 10/19/20 14:45 Urine,Clean Catch Urine Culture - Preliminary NO GROWTH Resulted 10/19/20 12:53 Blood Blood Culture - Preliminary Resulted 10/19/20 12:53 Blood Blood Culture - Preliminary Resulted Laboratory Tests Test 10/20/20 13:35 10/20/20 20:21 2/3/21 04:18 10/21/20 05:17 Urine Random Sodium 102 mmol/L (20-110) Urine Creatinine 48.9 MG/DL (30.0-125.0) POC Whole Blood Glucose 152 MG/DL (74-106) H 113 MG/DL (74-106) H White Blood Count 4.1 K/UL (4.8-10.8) L Red Blood Count 3.61 M/UL (4.20-5.40) L Hemoglobin 11.1 G/DL (12.0-16.0) L Hematocrit 34.9 % (37.0-47.0) L Mean Corpuscular Volume 97 FL (80-99) Mean Corpuscular Hemoglobin 30.8 PG (27.0-31.0) Mean Corpuscular Hemoglobin Concent 31.8 G/DL (32.0-36.0) L Red Cell Distribution Width 13.9 % (11.6-14.8) Platelet Count 90 K/UL (150-450) L Mean Platelet Volume 9.7 FL (6.5-10.1) Neutrophils (%) (Auto) % (45.0-75.0) Lymphocytes (%) (Auto) % (20.0-45.0) Monocytes (%) (Auto) % (1.0-10.0) Eosinophils (%) (Auto) % (0.0-3.0) Basophils (%) (Auto) % (0.0-2.0) Sodium Level 140 MMOL/L (136-145) Potassium Level 4.0 MMOL/L (3.5-5.1) Chloride Level 107 MMOL/L (98-107) Carbon Dioxide Level 21 MMOL/L (21-32) Anion Gap 12 mmol/L (5-15) Blood Urea Nitrogen 37 mg/dL (7-18) H Creatinine 2.5 MG/DL (0.55-1.30) H Estimat Glomerular Filtration Rate 20.3 mL/min (>60) Glucose Level 122 MG/DL (74-106) H Calcium Level 8.7 MG/DL (8.5-10.1) Random Vancomycin Level 22.1 ug/mL Current Medications Medications (Trade) Dose Ordered Sig/Abhay Route PRN Reason Start Time Stop Time Status Last Admin Dose Admin Acetaminophen (Tylenol) 650 mg Q6H PRN ORAL Temp >100.5 10/19/20 16:15 11/18/20 16:14 10/20/20 17:55 Acetaminophen (Tylenol) 650 mg Q6H PRN ORAL Mild Pain (Pain Scale 1-3) 10/19/20 16:15 11/18/20 16:14 10/21/20 09:22 Amlodipine Besylate (Norvasc) 5 mg DAILY ORAL 10/20/20 09:00 11/19/20 08:59 10/21/20 09:16 Dextrose (Dextrose 50%) 25 ml Q30M PRN IV Hypoglycemia 10/19/20 15:15 01/17/21 15:14 Dextrose (Dextrose 50%) 50 ml Q30M PRN IV Hypoglycemia 10/19/20 15:15 01/17/21 15:14 Diclofenac Sodium (Voltaren gel) 1 applic TID TOPIC 10/19/20 21:00 01/17/21 20:59 10/21/20 09:17 Insulin Aspart (NovoLOG) BEFORE MEALS AND HS SUBQ 10/19/20 17:00 01/17/21 16:59 10/20/20 20:23 Piperacillin Sod/ Tazobactam Sod 3.375 gm/Sodium Chloride 110 ml @ 27.5 mls/hr EVERY 8 HOURS IVPB 10/20/20 16:00 10/25/20 15:59 10/20/20 21:11 Sodium Chloride 1,000 ml @ 75 mls/hr [id number] IV 10/19/20 18:45 11/18/20 18:44 10/21/20 11:01 Vancomycin HCl (Vanco pharmacy to dose) 1 ea DAILY PRN MISC Per rx protocol 10/20/20 14:30 11/19/20 14:29 Lashell Nava MD Oct 21, 2020 11:08
--- NOTE | 2020-10-21 11:38 | Pulmonology Progress Note ---
Subjective ROS Limited/Unobtainable: No Interval Events: headache Constitutional: Denies: fever, chills HEENT: Repors: no symptoms Respiratory: Reports: no symptoms Cardiovascular: Reports: no symptoms Gastrointestinal/Abdominal: Reports: nausea, vomiting; Denies: diarrhea Genitourinary: Reports: dysuria Allergies: Coded Allergies: No Known Allergies (Unverified , 06/29/16) Objective Last 24 Hour Vital Signs Date Time Temp Pulse Resp B/P (MAP) Pulse Ox O2 Delivery O2 Flow Rate FiO2 10/21/20 09:16 85 147/100 10/21/20 09:00 Room Air 10/21/20 08:00 84 10/21/20 08:00 99.1 85 20 147/100 (116) 100 10/21/20 04:00 84 10/21/20 04:00 97.8 96 20 125/79 (94) 98 10/21/20 00:00 100.3 90 21 141/75 (97) 97 10/21/20 00:00 87 10/20/20 21:00 Room Air 10/20/20 20:00 100.2 96 20 152/86 (108) 96 10/20/20 20:00 97 10/20/20 18:28 102.8 10/20/20 16:00 88 10/20/20 16:00 97.8 85 18 154/95 (114) 95 10/20/20 12:00 100.9 91 18 133/83 (100) 98 10/20/20 12:00 89 Intake and Output 10/20/20 10/21/20 19:00 07:00 Intake Total 540 ml 892 ml Output Total 600 ml 1401 ml Balance -60 ml -509 ml Intake Oral 540 ml 890 ml Other 2 ml Output Urine Total 600 ml 1200 ml Stool Total 200 ml Other 1 ml # Voids 5 # Bowel Movements 1 1 General Appearance: no acute distress HEENT: atraumatic Respiratory: lungs clear Cardiovascular: normal rate Microbiology Date/Time Source Procedure Growth Status 10/19/20 15:25 Nasopharynx Coronavirus COVID-19 PCR ([facility]) - Final Complete 10/19/20 14:45 Urine,Clean Catch Urine Culture - Preliminary NO GROWTH Resulted 10/19/20 12:53 Blood Blood Culture - Preliminary Resulted 10/19/20 12:53 Blood Blood Culture - Preliminary Resulted Laboratory Tests 10/20/20 13:35: Urine Random Sodium 102, Urine Creatinine 48.9 10/20/20 20:21: POC Whole Blood Glucose 152H 10/21/20 04:18: White Blood Count 4.1L, Red Blood Count 3.61L, Hemoglobin 11.1L, Hematocrit 34.9L, Mean Corpuscular Volume 97, Mean Corpuscular Hemoglobin 30.8, Mean Corpuscular Hemoglobin Concent 31.8L, Red Cell Distribution Width 13.9, Platelet Count 90L, Mean Platelet Volume 9.7, Neutrophils (%) (Auto) , Lymphocytes (%) (A uto) , Monocytes (%) (Auto) , Eosinophils (%) (Auto) , Basophils (%) (Auto) , Sodium Level 140, Potassium Level 4.0, Chloride Level 107, Carbon Dioxide Level 21, Anion Gap 12, Blood Urea Nitrogen 37H, Creatinine 2.5H, Estimat Glomerular Filtration Rate 20.3, Glucose Level 122H, Calcium Level 8.7, Random Vancomycin Level 22.1 10/21/20 05:17: POC Whole Blood Glucose 113H Current Medications Medications (Trade) Dose Ordered Sig/Abhay Route PRN Reason Start Time Stop Time Status Last Admin Dose Admin Acetaminophen (Tylenol) 650 mg Q6H PRN ORAL Temp >100.5 10/19/20 16:15 11/18/20 16:14 10/20/20 17:55 Acetaminophen (Tylenol) 650 mg Q6H PRN ORAL Mild Pain (Pain Scale 1-3) 10/19/20 16:15 11/18/20 16:14 10/21/20 09:22 Amlodipine Besylate (Norvasc) 5 mg DAILY ORAL 10/20/20 09:00 11/19/20 08:59 10/21/20 09:16 Dextrose (Dextrose 50%) 25 ml Q30M PRN IV Hypoglycemia 10/19/20 15:15 01/17/21 15:14 Dextrose (Dextrose 50%) 50 ml Q30M PRN IV Hypoglycemia 10/19/20 15:15 01/17/21 15:14 Diclofenac Sodium (Voltaren gel) 1 applic TID TOPIC 10/19/20 21:00 01/17/21 20:59 10/21/20 09:17 Insulin Aspart (NovoLOG) BEFORE MEALS AND HS SUBQ 10/19/20 17:00 01/17/21 16:59 10/20/20 20:23 Piperacillin Sod/ Tazobactam Sod 3.375 gm/Sodium Chloride 110 ml @ 27.5 mls/hr EVERY 8 HOURS IVPB 10/20/20 16:00 10/25/20 15:59 10/20/20 21:11 Sodium Chloride 1,000 ml @ 75 mls/hr [id number] IV 10/19/20 18:45 11/18/20 18:44 10/21/20 11:01 Vancomycin HCl (Vanco pharmacy to dose) 1 ea DAILY PRN MISC Per rx protocol 10/20/20 14:30 11/19/20 14:29 Assessment/Plan Assessment/Plan 1. Dysuria -CT shows signs of ascending UTI -urine culture shows no growth -Given her history of ESBL UTI, will empirically treat -ID recs noted; on Vanco and Zosyn 2. ROMAIN on CKD -We will continue IV fluids -We will consult nephro 3. Diabetes mellitus with Hyperglycemia -We will start insulin sliding scale - A1c 7.4 4. Thrombocytopenia, secondary to chemo and sepsis -We will consult heme-onc - DIC panel 5. History of ovarian cancer, on chemo -We will consult heme-onc - hx of CA in 2018, s/p oophorectomy, hysterectomy and is on lymparza daily - continue outpatient Lymparza 6. Elevated ALT -Monitor ALT 7. Elevated BNP 8. Hypertension 9. Sepsis with tachycardia and fever - ID has been consulted DVT ppx - Venous duplex US ordered; SCD if negative COVID-19 negative Patient was about to be transferred to [facility] but patient and son request to leave AMA. Strongly discouraged, but they are firm on decision. The care for this patient was discussed with my supervising physician. Time spent for this case was approximately 31 minutes. Mihai Greene Oct 21, 2020 11:38
--- NOTE | 2020-10-21 11:41 | NUR ---
NURSE NOTES:Mihai Greene rounded on patient, aware of patient previous cranial surgery. Spoke to patient regarding headache, will place orders for pain medication.
[2020-10-21 11:50] VITALS: BP 145/89
--- NOTE | 2020-10-21 13:07 | NUR ---
[employer]ORER WRECKING AND SALVAGING NOTES RECIVED A CALL FROM [facility] SHELLEY AYALA TO BE TRANSFERRED INTO NETWORK. PT WAS ACCEPTED TO [facility] [address]. NURSE TO CALL REPORT TO [phone]. [facility] TO TRANSPORT THE PT. MADE AWARE.
--- NOTE | 2020-10-21 13:22 | NUR ---
NURSE NOTES:Kimberley Alexandre RN explain to patient in Latvian that she is being transferred to [facility] due to insurance request. patient is complaining of 10/10 headache and pleading of medication to relieve the pain. I paged Dr Guzman and am awaiting a call back.
[2020-10-21] MEDS ORDERED: ZOSYN 3.373.375 GM/1 IVPB (13:48)
--- NOTE | 2020-10-21 13:55 | NUR ---
NURSE NOTES:Called and gave report to GABRIEL Gomez as patient is being transferred to [facility]. report given.
[2020-10-21] MEDS ORDERED: HYDROcodone/Acetamin 5/325 tab ORAL PRN (14:00)
[2020-10-21] MEDS: Piperacillin/Tazobactam 3.375 GM in NS 110 ML IVPB SCH (14:00)
--- NOTE | 2020-10-21 14:10 | NUR ---
NURSE NOTES:Ambulance arrived to take patient to [facility], Patient is now stating she does not want to go to another hospital and instead wants to go home. Spoke to patients son over the phone, to let him know that his mother has a blood infection that requires treatment, as well as as an issue with her kidney markers which need to be evaluated further. Patient son states he will do what his mother wishes. I then had GABRIEL Rudd who speaks [place] speak to the patient directly, to explain that the infection in her blood requires treatment and that it is not safe to leave the hospital, also stating that the Doctor does not recommend her leave in her current condition. Patient is aware that she will be leaving against medical advice.
--- NOTE | 2020-10-21 14:58 | NUR ---
NURSE NOTES:Patients son arrived to pick his mother up, explained to him for the second time that it is not safe for his mom to leave the hospital due to the blood infection, son stated "you did not want to give her pain medication" informed the son that I gave Tylenol and contacted the Dr multiple times for a stronger medication for her pain and that I was unable to provide pain medication until prescribed by the provider. Informed son that he should take his mother to another hospital for treatment if she was not happy with the treatment here, as it is important that his mother is treated for the infection.
--- NOTE | 2020-10-22 16:23 | Discharge Summary ---
Discharge Summary Discharge Summary _ Date of admission: 1 10/19/2020 Patient left AGAINST MEDICAL ADVICE on 10/21/2020 History of Present Illness and Brief Hospital Course Ms. Randy Weinberg is a 50-year-old female with past medical history of ovarian cancer on chemotherapy who presented to the ED for evaluation of fever/chills, dysuria, body aches, generalized weakness x3 days. She reported that she received her last chemo dose 3 days prior to presentation. She reported testing negative for COVID-19 1 week ago from an outside source. The abdomen/pelvis CT without contrast showed perinephritic fat stranding and mild right hydronephrosis/hydroureter without evidence of downstream obstructive lesion suggesting nephritis/pyelonephritis/ureteritis. Patient received antibiotics, IV fluids, and was admitted to the hospital for further management. Given her clinical picture and previous history of ESBL UTI, she was empirically treated. Renal ultrasound was negative for hydronephrosis. Urine culture was negative for growth after 48 hours. Her blood cultures were positive for E. coli. Patient reported history of diabetes mellitus and her blood sugar was elevated. Her A1c was found to be 7.4 and she was started on insulin sliding scale. She also presented with thrombocytopenia which was likely secondary to chemo and sepsis. DIC panel was ordered for work-up. Patient was to be transferred to [facility] for continuation of care but patient requested to leave AMA. Patient and her son were strongly advised to stay given her critical condition. However, they were firm on their decision and left AMA. Consultants: Infectious disease Dr. Weldon Hematology oncology Dr. Mtz Nephrology Dr. Mojica Final diagnoses Gram-negative sepsis Pyelonephritis History of ovarian cancer Diabetes mellitus with hyperglycemia Obesity UTI sepsis ROMAIN, likely prerenal azotemia Dysuria CKD Thrombocytopenia Elevated ALT Elevated BNP Hypertension I have been assigned to dictate discharge summary for this account. Mihai Greene Oct 22, 2020 16:23
--- NOTE | 2020-10-23 09:45 | NUR ---
INSURANCE DC SUMMARY FAXED TO [facility] #[phone] fax# [phone]
== END 2020-10-21 14:50 | disposition left against medical advice (07) | DRG 872 ==
LOC: EMR 12:36 → 2E 13:43 → EDBEDREQSVC 14:28 → EDBEDREQ 14:35
DX: A41.50 Gram-negative sepsis, unspecified (principal); N17.9 Acute kidney failure, unspecified; N12 Tubulo-interstitial nephritis, not specified as acute or chronic; D68.8 Other specified coagulation defects; Z16.12 Extended spectrum beta lactamase (ESBL) resistance; D84.89 Other immunodeficiencies; N39.0 Urinary tract infection, site not specified; I12.9 Hypertensive chronic kidney disease with stage 1 through stage 4 chronic kidney disease, or unspecified chronic kidney disease; N18.9 Chronic kidney disease, unspecified; D69.59 Other secondary thrombocytopenia; K57.90 Diverticulosis of intestine, part unspecified, without perforation or abscess without bleeding; Z85.43 Personal history of malignant neoplasm of ovary; E11.65 Type 2 diabetes mellitus with hyperglycemia; E66.9 Obesity, unspecified; E86.0 Dehydration; B96.89 Other specified bacterial agents as the cause of diseases classified elsewhere; Z92.21 Personal history of antineoplastic chemotherapy
CPT/HCPCS: 36415; 71045; 74176; 76770; 80048; 80053; 80069; 80202; 81003; 82306; 82550; 82553; 82570; 82728; 82962; 83036; 83540; 83550; 83605; 83690; 83735; 83880; 83970; 84100; 84300; 84484; 85007; 85025; 85610; 85730; 86304; 87040; 87086; 87181; 93005; 93970; 96361; 96365; 96367; 96375; 99285; J1815; J7030